=== PATIENT | female | born 1995 | race Caucasian/White ===

== ENCOUNTER 2020-05-10 15:13 | Emergency (ER) | payer OTHER ==
[2020-05-10 17:02] LABS: Urine Blood NEGATIVE (NEG); Urine Glucose NEGATIVE (NEG); Urine Protein NEGATIVE (NEG); Urine Specific Gravity 1.025 (1.005-1.030)
--- NOTE | 2020-05-10 17:38 | RAD REPORT ---
EXAM DESCRIPTION: US - Transvaginal Study Probe - 05/10/2020 5:07 pm CLINICAL HISTORY: Pelvic pain COMPARISON: none FINDINGS: The uterus measures 10 x 4 x 5cm. A fibroid is not seen. The endometrial stripe measures 1 centimeter The right ovary is borderline enlarged. It contains many follicles. It also contains a 2.6 centimeter cyst. Left ovary is borderline enlarged. It also contains many follicles. It contains a 2.9 centimeters cys t. Each ovary contains blood flow The right and left at adnexa unremarkable No significant free fluid is seen. IMPRESSION: Bilateral ovarian cysts Prominent follicles within the ovaries may indicate polycystic ovarian syndrome
--- NOTE | 2020-05-10 17:46 | ER ---
Nurse's Notes [facility] Name: Tigist Valdez Age: 24 yrs Sex: Female : 1995 Arrival Date: 05/10/2020 Time: 15:17 Bed 23 Private MD: Diagnosis: Other ovarian cysts Presentation: 05/10 15:32 Chief complaint: Patient states: bilateral "ovary" pain for 3 months with R>L. sv Yesterday started feeling lightheaded. Coronavirus screen: Client denies travel out of the [place] in the last 14 days. At this time, the client does not indicate any symptoms associated with coronavirus-19. Ebola Screen: No symptoms or risks identified at this time. Risk Assessment: Do you want to hurt yourself or someone else? Patient reports no desire to harm self or others. Onset of symptoms is unknown. 15:32 Method Of Arrival: Ambulatory sv 15:32 Acuity: LUCAS 3 sv 15:33 Initial Sepsis Screen: Does the patient meet any 2 criteria? No. Patient's initial sv sepsis screen is negative. Does the patient have a suspected source of infection? No. Patient's initial sepsis screen is negative. 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 - Social history:: Smoking status: Patient denies any tobacco usage or history of. Screenin:29 Abuse screen: Denies threats or abuse. Denies injuries from another. Nutritional iw screening: No deficits noted. Tuberculosis screening: No symptoms or risk factors identified. Fall Risk None identified. Assessment: 16:29 General: Appears in no apparent distress. comfortable, Behavior is calm, cooperative. iw Pain: Complains of pain in right lower quadrant and left lower quadrant. Neuro: Level of Consciousness is awake, alert, obeys commands, Oriented to person, place, time, situation. Cardiovascular: Patient's skin is warm and dry. Respiratory: Respiratory effort is even, unlabored, Respiratory pattern is regular, symmetrical. GI: Abdomen is non-distended, Reports lower abdominal pain. : Reports pain in bilateral lower quadrant(s) with urination. Derm: Skin is intact, is healthy with good turgor. Musculoskeletal: Range of motion: intact in all extremities. Vital Signs: 15:33 BP 109 / 69; Pulse 76; Resp 16; Temp 98.8; Pulse Ox 99% ; Weight 62.6 kg; Height 5 ft. sv 2 in. (157.48 cm); 15:33 Body Mass Index 25.24 (62.60 kg, 157.48 cm) sv ED Course: 15:17 Patient arrived in ED. as 15:32 Arm band placed on. sv 15:33 Triage completed. sv 16:05 Halina Salazar FNP-C is [facility]. kb 16:05 Alex Richardson MD is Attending Physician. kb 16:13 Thelma Bravo, RN is Primary Nurse. iw 16:28 Patient has correct armband on for positive identification. iw 17:07 US Transvaginal Study (Probe) In Process Unspecified. EDMS 17:56 No provider procedures requiring assistance completed. Patient did not have IV access iw during this emergency room visit. Administered Medications: No medications were administered Outcome: 17:45 Discharge ordered by MD. kb 17:56 Discharged to home ambulatory. iw 17:56 Condition: good 17:56 Discharge instructions given to patient, Instructed on discharge instructions, follow up and referral plans. Demonstrated understanding of instructions, follow-up care, medications, Prescriptions given X 1. 17:57 Patient left the ED. iw Signatures: Dispatcher [employer] EDKY Halina Salazar FNP-C FNP-Ckb Verde, Stephanie, RN RN Lashonda Max as Thelma Bravo, CANDI CHRISTOPHER iw
--- NOTE | 2020-05-10 17:46 | EDPHYS ---
Physician Documentation [facility] Name: Tigsit Valdez Age: 24 yrs Sex: Female : 1995 Arrival Date: 05/10/2020 Time: 15:17 Bed 23 Private MD: ED Physician Alex Richardson HPI: 05/10 18:03 This 24 yrs old Female presents to ER via Ambulatory with complaints of kb Pelvic Pain, Dizziness. 18:03 The patient presents with pelvic pain, that is located in/on the suprapubic area, right kb inguinal area and left inguinal area. Onset: The symptoms/episode began/occurred 3 month(s) ago. Modifying factors: The symptoms are alleviated by nothing, the symptoms are aggravated by nothing. Associated signs and symptoms: The patient has no apparent associated signs or symptoms. Severity of symptoms: At their worst the symptoms were moderate, in the emergency department the symptoms are unchanged. The patient has not experienced similar symptoms in the past. The patient has not recently seen a physician. Pt reports intermittent pelvic/"ovarian" pain for 3 months. States sometimes the pain causes lightheadedness. 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 - Social history:: Smoking status: Patient denies any tobacco usage or history of. ROS: 18:00 Constitutional: Negative for fever, chills, and weight loss, Cardiovascular: Negative kb for chest pain, palpitations, and edema, Respiratory: Negative for shortness of breath, cough, wheezing, and pleuritic chest pain, Abdomen/GI: Negative for abdominal pain, nausea, vomiting, diarrhea, and constipation, Back: Negative for injury and pain, MS/Extremity: Negative for injury and deformity, Skin: Negative for injury, rash, and discoloration, Neuro: Negative for headache, weakness, numbness, tingling, and seizure. 18:00 : Positive for pelvic pain. Exam: 18:03 Constitutional: This is a well developed, well nourished patient who is awake, alert, kb and in no acute distress. Head/Face: Normocephalic, atraumatic. Chest/axilla: Normal chest wall appearance and motion. Nontender with no deformity. No lesions are appreciated. Cardiovascular: Regular rate and rhythm with a normal S1 and S2. No gallops, murmurs, or rubs. Normal PMI, no JVD. No pulse deficits. Respiratory: Lungs have equal breath sounds bilaterally, clear to auscultation and percussion. No rales, rhonchi or wheezes noted. No increased work of breathing, no retractions or nasal flaring. Abdomen/GI: Soft, non-tender, with normal bowel sounds. No distension or tympany. No guarding or rebound. No evidence of tenderness throughout. Skin: Warm, dry with normal turgor. Normal color with no rashes, no lesions, and no evidence of cellulitis. MS/ Extremity: Pulses equal, no cyanosis. Neurovascular intact. Full, normal range of motion. Neuro: Awake and alert, GCS 15, oriented to person, place, time, and situation. Cranial nerves II-XII grossly intact. Motor strength 5/5 in all extremities. Sensory grossly intact. Cerebellar exam normal. Normal gait. Vital Signs: 15:33 BP 109 / 69; Pulse 76; Resp 16; Temp 98.8; Pulse Ox 99% ; Weight 62.6 kg; Height 5 ft. sv 2 in. (157.48 cm); 15:33 Body Mass Index 25.24 (62.60 kg, 157.48 cm) sv MDM: 16:14 Patient medically screened. kb 17:59 Data reviewed: vital signs, nurses notes. Data interpreted: Pulse oximetry: on room air kb is 99 %. Interpretation: normal. Counseling: I had a detailed discussion with the patient and/or guardian regarding: the historical points, exam findings, and any diagnostic results supporting the discharge/admit diagnosis, lab results, radiology results, the need for outpatient follow up, an OB/Gyne specialist, to return to the emergency department if symptoms worsen or persist or if there are any questions or concerns that arise at home. 05/10 16:40 Order name: Urine Dipstick--Ancillary (enter results); Complete Time: 17:06 bd 05/10 16:40 Order name: Urine --Ancillary (enter results); Complete Time: 17: bd 05/10 15:51 Order name: Urine Dipstick-Ancillary (obtain specimen); Complete Time: 16:30 kb 05/10 16:38 Order name: US Transvaginal Study (Probe); Complete Time: 17:43 sv Administered Medications: No medications were administered Disposition: 05/11 06:41 Co-signature as Attending Physician, Alex Richardson MD I agree with the assessment and kdr plan of care. Disposition: 05/10/20 17:45 Discharged to Home. Impression: Other ovarian cysts. - Condition is Stable. - Discharge Instructions: Ovarian Cyst, [id number]. - Prescriptions for Ibuprofen 600 mg Oral Tablet - take 1 tablet by ORAL route every 6 hours As needed take with food; 30 tablet. - Medication Reconciliation Form, Thank You Letter, Antibiotic Education, Prescription Opioid Use form. - Follow up: Emergency Department; When: As needed; Reason: Worsening of condition. Follow up: Private Physician; When: 2 - 3 days; Reason: Recheck today's complaints, Continuance of care, Re-evaluation by your physician. Signatures: Dispatcher [employer] EDVA Halina Salazar, JACQUIE-Stacy PERSONNEL AND PAYROLL TECHNICIAN-Yisel Santoyo, RN RN sv Alex Richardson MD MD [facility] Thelma Bravo RN RN iw Corrections: (The following items were deleted from the chart) 05/10 17:57 17:45 05/10/2020 17:45 Discharged to Home. Impression: Other ovarian cysts. Condition iw is Stable. Forms are Medication Reconciliation Form, Thank You Letter, Antibiotic Education, Prescription Opioid Use. Follow up: Emergency Department; When: As needed; Reason: Worsening of condition. Follow up: Private Physician; When: 2 - 3 days; Reason: Recheck today's complaints, Continuance of care, Re-evaluation by your physician. kb
[2020-05-10 18:02] VITALS: BP 109/69; TEMP 98.8; O2SAT 99
== END 2020-05-10 17:57 | disposition home or self-care (01) ==
LOC: ER 15:13
DX: N83.291 Other ovarian cyst, right side (principal); N83.292 Other ovarian cyst, left side
CPT/HCPCS: 76830; 81003; 81025; 99283

== ENCOUNTER 2020-06-19 10:45 | Emergency (ER) | payer OTHER ==
--- OUTSIDE RECORDS SUMMARY | 2020-06-19 10:48 | XMS REPORT | Continuity of Care Document ---
:1995 Author Organization [facility] t Address [address] [place] [address] Care Team Providers Name Role Phone Unavailable Unavailable Unavailable Payers Payer Name Policy Type Policy Number Effective Date Expiration Date S ource Problems This patient has no known problems. Allergies, Adverse Reactions, Alerts This patient has no known allergies or adverse reactions. Medications This patient has no known medications. Procedures This patient has no known procedures. Results This patient has no known results.
[2020-06-19 12:30] LABS: SARS-COV-2 RT PCR NEGATIVE (NEGATIVE)
--- NOTE | 2020-06-19 13:18 | ER ---
Nurse's Notes [facility] Name: Tigist Valdez Age: 25 yrs Sex: Female : 1995 Arrival Date: 06/19/2020 Time: 10:50 Bed 15 Private MD: Diagnosis: Viral infection, unspecified;Acute upper respiratory infection, unspecified Presentation: 06/19 10:55 Chief complaint: Patient states: Cough, sore throat, loss of taste or smell since ll1 Friday. Wants covid test. Coronavirus screen: Client denies travel out of the [place] in the last 14 days. congestion, cough unrelated to allergies, difficulty breathing, fatigue, fever, headache, nausea, runny nose, shaking with chills, shortness of breath, sore throat, loss of taste or smell, vomiting. Client presents with at least one sign or symptom that may indicate coronavirus-19. Standard/surgical mask placed on the client. Ebola Screen: Patient denies travel to an Ebola-affected area in the 21 days before illness onset. Initial Sepsis Screen: Does the patient meet any 2 criteria? No. Patient's initial sepsis screen is negative. Does the patient have a suspected source of infection? Yes: Productive cough/pneumonia. Risk Assessment: Do you want to hurt yourself or someone else? Patient reports no desire to harm self or others. Onset of symptoms was June 17, 2020. 10:55 Method Of Arrival: Ambulatory ll1 10:58 Acuity: LUCAS 4 ll1 Historical: - Allergies: 10:55 No Known Allergies; ll1 - PMHx: 10:55 None; ll1 - PSHx: 10:55 None; ll1 - Immunization history:: Flu vaccine is not up to date. - Social history:: Smoking status: Patient denies any tobacco usage or history of. Screenin:00 Abuse screen: Denies threats or abuse. Denies injuries from another. Nutritional jl7 screening: No deficits noted. Tuberculosis screening: No symptoms or risk factors identified. Fall Risk None identified. Assessment: 12:00 General: Appears in no apparent distress. uncomfortable, Behavior is calm, cooperative, jl7 appropriate for age. Pain: Complains of pain in sore throat Pain currently is 7 out of 10 on a pain scale. Neuro: Level of Consciousness is awake, alert, obeys commands, Oriented to person, place, time, situation. Cardiovascular: Patient's skin is warm and dry. Respiratory: Reports cough that is Airway is patent Respiratory effort is even, unlabored, Respiratory pattern is regular, symmetrical. EENT: Throat is clear. Derm: Skin is pink, warm \T\ dry. Vital Signs: 10:55 BP 123 / 79; Pulse 82; Resp 16; Temp 98.9; Pulse Ox 100% ; Weight 63.5 kg; Height 5 ft. ll1 2 in. (157.48 cm); Pain 7/10; 10:55 Body Mass Index 25.60 (63.50 kg, 157.48 cm) ll1 ED Course: 10:50 Patient arrived in ED. mr 10:55 Arm band placed on. ll1 10:58 Triage completed. ll1 11:49 Norris Grider PA is PHCP. jr8 11:49 Mckay Moore MD is Attending Physician. jr8 12:00 Patient has correct armband on for positive identification. Bed in low position. Call jl7 light in reach. Side rails up X 1. 12:00 COVID swab sent to lab. Flu and/or RSV swab sent to lab. Strep swab sent to lab. 7 12:11 Sarah Gore RN is Primary Nurse. [facility] 13:47 No provider procedures requiring assistance completed. Patient did not have IV access ss during this emergency room visit. Administered Medications: No medications were administered Outcome: 13:18 Discharge ordered by . [facility] 13:47 Discharged to home ambulatory. 13:47 Condition: good 13:47 Discharge instructions given to patient, Instructed on discharge instructions, follow up and referral plans. Demonstrated understanding of instructions, follow-up care, medications, Prescriptions given X 1. 13:48 Patient left the ED. ss Signatures: Lisandra AlvaradoJane cates RN RN ss Roszak, Josh, PA PA jr8 Sarah Gore RN RN jl7 Lewis, Lynsay, RN RN ll1 Corrections: (The following items were deleted from the chart) 10:58 10:55 BP 123 / 79; Pulse 8bpm; Resp 16bpm; Pulse Ox 100%; Temp 98.9F; 63.5 kg; Height 5 ll1 ft. 2 in.; BMI: 25.6; Pain 7/10; ll1 10:58 10:55 Acuity: LUCAS 3 ll1 1
--- NOTE | 2020-06-19 13:18 | EDPHYS ---
Physician Documentation [facility] Name: Tigist Valdez Age: 25 yrs Sex: Female : 1995 Arrival Date: 06/19/2020 Time: 10:50 Bed 15 Private MD: ED Physician Mckay Moore HPI: 06/19 12:41 This 25 yrs old Female presents to ER via Ambulatory with complaints of jr8 Fever, Lack of taste and smell. 12:41 The patient reports fever, not measured (subjective). Onset: The symptoms/episode jr8 began/occurred gradually, 2 day(s) ago. Modifying factors: there are no obvious modifying factors. Associated signs and symptoms: Pertinent positives: cough, runny nose, sinus congestion, sore throat. Severity of symptoms: At their worst the symptoms were mild in the emergency department the symptoms are unchanged. The patient has not experienced similar symptoms in the past. The patient has not recently seen a physician. Historical: - Allergies: 10:55 No Known Allergies; ll1 - PMHx: 10:55 None; ll1 - PSHx: 10:55 None; ll1 - Immunization history:: Flu vaccine is not up to date. - Social history:: Smoking status: Patient denies any tobacco usage or history of. ROS: 12:41 Eyes: Negative for injury, pain, redness, and discharge, Neck: Negative for injury, jr8 pain, and swelling, Cardiovascular: Negative for chest pain, palpitations, and edema, Abdomen/GI: Negative for abdominal pain, nausea, vomiting, diarrhea, and constipation, Back: Negative for injury and pain, MS/Extremity: Negative for injury and deformity, Skin: Negative for injury, rash, and discoloration. 12:41 Constitutional: Positive for body aches, fever. 12:41 ENT: Positive for rhinorrhea, sinus congestion, sore throat. 12:41 Respiratory: Positive for cough, Negative for dyspnea on exertion, shortness of breath, sputum production, wheezing. 12:41 Neuro: Positive for headache. Exam: 12:41 Eyes: Pupils equal round and reactive to light, extra-ocular motions intact. Lids and jr8 lashes normal. Conjunctiva and sclera are non-icteric and not injected. Cornea within normal limits. Periorbital areas with no swelling, redness, or edema. ENT: Nares patent. No nasal discharge, no septal abnormalities noted. Tympanic membranes are normal and external auditory canals are clear. Oropharynx with no redness, swelling, or masses, exudates, or evidence of obstruction, uvula midline. Mucous membranes moist. Neck: Trachea midline, no thyromegaly or masses palpated, and no cervical lymphadenopathy. Supple, full range of motion without nuchal rigidity, or vertebral point tenderness. No Meningismus. Cardiovascular: Regular rate and rhythm with a normal S1 and S2. No gallops, murmurs, or rubs. Normal PMI, no JVD. No pulse deficits. Respiratory: Lungs have equal breath sounds bilaterally, clear to auscultation and percussion. No rales, rhonchi or wheezes noted. No increased work of breathing, no retractions or nasal flaring. Abdomen/GI: Soft, non-tender, with normal bowel sounds. No distension or tympany. No guarding or rebound. No evidence of tenderness throughout. Back: No spinal tenderness. No costovertebral tenderness. Full range of motion. Skin: Warm, dry with normal turgor. Normal color with no rashes, no lesions, and no evidence of cellulitis. MS/ Extremity: Pulses equal, no cyanosis. Neurovascular intact. Full, normal range of motion. Neuro: Awake and alert, GCS 15, oriented to person, place, time, and situation. Cranial nerves II-XII grossly intact. Motor strength 5/5 in all extremities. Sensory grossly intact. Vital Signs: 10:55 BP 123 / 79; Pulse 82; Resp 16; Temp 98.9; Pulse Ox 100% ; Weight 63.5 kg; Height 5 ft. ll1 2 in. (157.48 cm); Pain 7/10; 10:55 Body Mass Index 25.60 (63.50 kg, 157.48 cm) ll1 MDM: 11:50 Patient medically screened. [facility] 13:17 Data reviewed: vital signs, nurses notes, lab test result(s), and as a result, I will jr8 discharge patient. Data interpreted: Pulse oximetry: on room air is 100 %. Interpretation: normal. Counseling: I had a detailed discussion with the patient and/or guardian regarding: the historical points, exam findings, and any diagnostic results supporting the discharge/admit diagnosis, lab results, the need for outpatient follow up, a family practitioner, to return to the emergency department if symptoms worsen or persist or if there are any questions or concerns that arise at home. 06/19 11:27 Order name: Strep; Complete Time: 13:17 rn 06/19 12:31 Order name: COVID-19/FLU A+B; Complete Time: 12:41 EDMS 06/19 13:08 Order name: Throat Culture EDNJ Administered Medications: No medications were administered Disposition: 14:39 Co-signature as Attending Physician, Mckay Moore MD. rn Disposition: 06/19/20 13:18 Discharged to Home. Impression: Viral infection, unspecified, Acute upper respiratory infection, unspecified. - Condition is Stable. - Discharge Instructions: Upper Respiratory Infection, Adult, Viral Respiratory Infection, COVID-19. - Prescriptions for Medrol (G[place]ito) 4 mg Oral Tablets, Dose Pack - take 1 tablet by ORAL route as directed - follow package instructions; 1 packet. - Medication Reconciliation Form, Thank You Letter, Antibiotic Education, Prescription Opioid Use form. - Follow up: Private Physician; When: 2 - 3 days; Reason: Recheck today's complaints, Continuance of care, Re-evaluation by your physician. - Problem is new. - Symptoms have improved. Signatures: Dispatcher [employer] EDNJ Mckay Moore MD MD rn Smirch, Shelby, RN RN ss Norris Grider PA PA jr8 Jacque Goodwin RN RN ll1 Corrections: (The following items were deleted from the chart) 11:47 11:28 CORONAVIRUS+MR.LAB.BRZ ordered. [facility] 11:48 11:28 Influenza Screen (A \T\ B)+BA.LAB.BRZ ordered. [facility] 13:18 13:18 06/19/2020 13:18 Discharged to Home. Impression: Viral infection, unspecified. jr8 Condition is Stable. Forms are Medication Reconciliation Form, Thank You Letter, Antibiotic Education, Prescription Opioid Use. Follow up: Private Physician; When: 2 - 3 days; Reason: Recheck today's complaints, Continuance of care, Re-evaluation by your physician. Problem is new. Symptoms have improved. jr 13:48 13:18 06/19/2020 13:18 Discharged to Home. Impression: Viral infection, unspecified; ss Acute upper respiratory infection, unspecified. Condition is Stable. Forms are Medication Reconciliation Form, Thank You Letter, Antibiotic Education, Prescription Opioid Use. Follow up: Private Physician; When: 2 - 3 days; Reason: Recheck today's complaints, Continuance of care, Re-evaluation by your physician. Problem is new. Symptoms have improved. jr8
[2020-06-19 13:52] VITALS: BP 123/79; TEMP 98.9; O2SAT 100
== END 2020-06-19 13:48 | disposition home or self-care (01) ==
LOC: ER 10:45
DX: J06.9 Acute upper respiratory infection, unspecified (principal); B34.9 Viral infection, unspecified; Z20.822 Contact with and (suspected) exposure to COVID-19
CPT/HCPCS: 87070; 87081; 0240U; 99283

== ENCOUNTER → 2023-04-07 | Emergency (ER) | payer OTHER ==
[~2023-04-07] MED LIST: CEFTRIAXONE 1000 MG/VIAL ONE; CLINDAMYCIN 900MG/D5W 900 MG/50 ML IVPB IV ONE; CODEINE 30MG/APAP 300MG TAB ONE; KETOROLAC 30 MG/ML INJ ONE; LIDOCAINE 1% MPF 2 ML AMPULE ONE; dexAMETHasone 10 MG/ML VIAL ONE
--- OUTSIDE RECORDS SUMMARY | 2023-04-07 21:41 | XMS REPORT | Continuity of Care Document ---
Author Name Unknown Address [address] [place] [address] [facility] Address 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
[2023-04-07 22:10] LABS: Specific Gravity 1.022 (1.005-1.030)
--- NOTE | 2023-04-07 22:41 | ER ---
Nurse's Notes [facility] Name: Tigist Valdez Age: 27 yrs Sex: Female : 1995 Arrival Date: 04/07/2023 Time: 21:38 Bed DX1 Private MD: Diagnosis: Acute bacterial pharyngitis, right cervical anterior lymphadenopathy Presentation: 04/07 21:43 Chief complaint: Patient states: R THROAT PAIN x2 DAYS. Coronavirus screen: At this bp time, the client does not indicate any symptoms associated with coronavirus-19. Ebola Screen: No symptoms or risks identified at this time. Initial Sepsis Screen: Does the patient meet any 2 criteria? No. Patient's initial sepsis screen is negative. Does the patient have a suspected source of infection? No. Patient's initial sepsis screen is negative. Risk Assessment: Do you want to hurt yourself or someone else?. Onset of symptoms is unknown. 21:43 Method Of Arrival: Ambulatory bp 21:43 Acuity: LUCAS 4 bp Historical: - Allergies: 21:46 No Known Allergies; bp - Home Meds: 21:46 None [Active]; bp - PMHx: 21:46 None; bp - Immunization history:: Adult Immunizations up to date. - Social history:: Smoking status: Patient denies any tobacco usage or history of. - Family history:: not pertinent. Screenin:48 [facility] ED Fall Risk Assessment (Adult) History of falling in the last 3 months, vc1 including since admission No falls in past 3 months (0 pts) Confusion or Disorientation No (0 pts) Intoxicated or Sedated No (0 pts) Impaired Gait No (0 pts) Mobility Assist Device Used No (0 pt) Altered Elimination No (0 pt) Score/Fall Risk Level 0 - 2 = Low Risk Oriented to surroundings, Maintained a safe environment, Educated pt \T\ family on fall prevention, incl call for assistance when getting out of bed. Abuse screen: Denies threats or abuse. Nutritional screening: No deficits noted. Tuberculosis screening: No symptoms or risk factors identified. Assessment: 22:50 Reassessment: Patient and/or family updated on plan of care and expected duration. Pain vc1 level reassessed. Patient is alert, oriented x 3, equal unlabored respirations, skin warm/dry/pink. Patient states feeling better. Patient states symptoms have improved. Pain: Denies pain. Neuro: No deficits noted. Respiratory: Airway is patent Respiratory effort is even, unlabored, Respiratory pattern is regular, symmetrical. Vital Signs: 21:43 BP 140 / 78; Pulse 75; Resp 16; Temp 98; Pulse Ox 98% ; bp 22:47 BP 134 / 74; Pulse 72; Resp 16; Pulse Ox 98% ; Pain 0/10; vc1 22:47 Pain Scale: Adult vc1 ED Course: 21:42 Patient arrived in ED. mr 21:42 Aram Viveros MD is Attending Physician. sp4 21:45 Triage completed. bp 21:46 Arm band placed on. bp 22:48 No provider procedures requiring assistance completed. Patient did not have IV access vc1 during this emergency room visit. Administered Medications: 22:04 Drug: Ketorolac IM 60 mg IM once Route: IM; Site: right ventrogluteal; vc1 22:47 Follow up: Response: No adverse reaction; Marked relief of symptoms vc1 22:04 Drug: Rocephin (cefTRIAXone) IM 1 grams IM once Route: IM; Site: left ventrogluteal; vc1 22:47 Follow up: Response: No adverse reaction; Marked relief of symptoms vc1 22:04 Drug: Acetaminophen-Codeine PO (300 mg-30 mg) 2 tabs PO once; RASS on ADMIN: Combtv4, vc1 Very Agttd3, Agttd2, Rstlss1, AlertClm0, Drwsy-1, Lt Sdtn-2, Mod Sdtn-3, Dp Sdtn-4, UnArsble-5 Route: PO; 22:47 Follow up: Response: No adverse reaction; Marked relief of symptoms; Pain is decreased vc1 Medication: 22:50 VIS not applicable for this client. vc1 Outcome: 22:40 Discharge ordered by MD. sp4 22:50 Discharged to home ambulatory, vc1 22:50 Condition: good 22:50 Discharge instructions given to patient, Instructed on discharge instructions, follow up and referral plans. medication usage, Demonstrated understanding of instructions, follow-up care, medications, Prescriptions given X 3, 22:51 Patient left the ED. vc1 Signatures: Lisandra Alvarado, Reg Reg mr Agustin Pike RN RN bp Sheri Martel RN RN vc1 Jackeline Aram, MD sp4
--- NOTE | 2023-04-07 22:41 | EDPHYS ---
Physician Documentation [facility] Name: Tigist Valdez Age: 27 yrs Sex: Female : 1995 Arrival Date: 04/07/2023 Time: 21:38 Bed DX1 Private MD: ED Physician Aram Viveros HPI: 04/07 21:42 This 27 yrs old Female presents to ER via Unassigned with complaints of sp4 Throat swelling. 21:48 27-year-old female presents with 3 days of right-sided throat swelling pain with sp4 swallowing as well and sore throat. Patient denied any difficulty swallowing and denied any difficulty breathing. . Historical: - Allergies: 21:46 No Known Allergies; bp - Home Meds: 21:46 None [Active]; bp - PMHx: 21:46 None; bp - Immunization history:: Adult Immunizations up to date. - Social history:: Smoking status: Patient denies any tobacco usage or history of. - Family history:: not pertinent. ROS: 21:48 Constitutional: Negative for fever, chills, and weight loss, positive right neck sp4 swelling, positive photophobia, positive pain on swallowing 21:48 All other systems are negative, Exam: 21:48 Constitutional: This is a well developed, well nourished patient who is awake, alert, sp4 and in no acute distress. Head/Face: Normocephalic, atraumatic. Eyes: Pupils equal round and reactive to light, extra-ocular motions intact. Lids and lashes normal. Conjunctiva and sclera are not injected. Cornea within normal limits. Periorbital areas with no swelling, redness, or edema. ENT: Nares patent. No nasal discharge, no septal abnormalities noted. Tympanic membranes are normal and external auditory canals are clear. Oropharynx with bilateral pharyngeal redness and irritation, no sign of peritonsillar abscess no uvular deviation. Neck: Trachea midline, no thyromegaly or masses palpated, Supple, full range of motion without nuchal rigidity, or vertebral point tenderness. Positive right-sided cervical lymphadenopathy that is anterior and right submandibular Chest/axilla: Normal chest wall appearance and motion. Nontender with no deformity. No lesions are appreciated. Cardiovascular: Regular rate and rhythm with a normal S1 and S2. No gallops, murmurs, or rubs. Normal PMI, no JVD. No pulse deficits. Respiratory: Lungs have equal breath sounds bilaterally, clear to auscultation and percussion. No rales, rhonchi or wheezes noted. No increased work of breathing, no retractions or nasal flaring. Abdomen/GI: Soft, non-tender, with normal bowel sounds. No distension or tympany. No guarding or rebound. No evidence of tenderness throughout. Back: No spinal tenderness. No costovertebral tenderness. There is sacral decubitus ulcer that is covered by the wound VAC. Skin: Warm, dry with normal turgor. Normal color with no rashes, no lesions, and no evidence of cellulitis. MS/ Extremity: Pulses equal, no cyanosis. Neurovascular intact. Full, normal range of motion. Neuro: Awake and alert, GCS 15, oriented to person, place, time, and situation. Cranial nerves II-XII grossly intact. Motor strength 5/5 in all extremities. Sensory grossly intact. Psych: Awake, alert, with orientation to person, place and time. Behavior, mood, and affect are within normal limits Vital Signs: 21:43 BP 140 / 78; Pulse 75; Resp 16; Temp 98; Pulse Ox 98% ; bp 22:47 BP 134 / 74; Pulse 72; Resp 16; Pulse Ox 98% ; Pain 0/10; vc1 22:47 Pain Scale: Adult vc1 MDM: 21:48 Differential Diagnosis altered mental status, sepsis, flu. Data reviewed: vital signs. sp4 Data reviewed: nurses notes, lab test result(s), UPT: negative. 21:55 Patient medically screened. sp4 22:39 ED course: test is negative. ED course: Is a test is negative sp4 patient is stable for discharge home with cefdinir ibuprofen and some tramadol.. 22:41 ED course: Patient advised to return to emergency room in case lymphadenopathy becomes sp4 greater in size or she develops hoarseness or difficulty breathing.. Additional return to ER precautions were discussed with patient in detail.. 04/07 21:48 Order name: Test, Urine; Complete Time: 22:37 sp4 Administered Medications: 22:04 Drug: Ketorolac IM 60 mg IM once Route: IM; Site: right ventrogluteal; vc1 22:47 Follow up: Response: No adverse reaction; Marked relief of symptoms vc1 22:04 Drug: Rocephin (cefTRIAXone) IM 1 grams IM once Route: IM; Site: left ventrogluteal; vc1 22:47 Follow up: Response: No adverse reaction; Marked relief of symptoms vc1 22:04 Drug: Acetaminophen-Codeine PO (300 mg-30 mg) 2 tabs PO once; RASS on ADMIN: Combtv4, vc1 Very Agttd3, Agttd2, Rstlss1, AlertClm0, Drwsy-1, Lt Sdtn-2, Mod Sdtn-3, Dp Sdtn-4, UnArsble-5 Route: PO; 22:47 Follow up: Response: No adverse reaction; Marked relief of symptoms; Pain is decreased vc1 Disposition Summary: 04/07/23 22:40 Discharge Ordered Notes: Location: Home sp4 Problem: new sp4 Symptoms: have improved sp4 Condition: Stable sp4 Diagnosis - Acute bacterial pharyngitis, right cervical anterior lymphadenopathy sp4 Followup: sp4 - With: Private Physician - When: 7 - 10 days - Reason: Recheck today's complaints Discharge Instructions: - Discharge Summary Sheet sp4 - Lymphadenopathy sp4 Forms: - Patient Portal Instructions sp4 Prescriptions: - cefdinir 300 mg Oral capsule - take 1 capsule ORAL route 2 times per day for 10 days; 20 capsule; Refills: 0, sp4 Product Selection Permitted - Ibuprofen 800 mg Oral Tablet - take 1 tablet ORAL route every 8 hours As needed take with food; 30 tablet; sp4 Refills: 0, Product Selection Permitted - Tramadol 50 mg Oral Tablet - take 1 tablet ORAL route every 8 hours as needed; 12 tablet; Refills: 0, sp4 Product Selection Permitted Signatures: Dispatcher [employer] Agustin Ceron RN RN Sheri Peoples RN RN vc1 Aram Viveros MD MD sp4
[2023-04-08 02:38] VITALS: BP 134/74; TEMP 98; O2SAT 98
== END ==
LOC: ER 21:38
DX: J02.8 Acute pharyngitis due to other specified organisms (principal); R59.0 Localized enlarged lymph nodes
CPT/HCPCS: 81025; 96372; 99284; J0696

== ENCOUNTER → 2023-04-10 | Emergency (ER) | payer OTHER ==
[~2023-04-10] MED LIST changes: -CEFTRIAXONE 1000 MG/VIAL ONE; -CLINDAMYCIN 900MG/D5W 900 MG/50 ML IVPB IV ONE; -CODEINE 30MG/APAP 300MG TAB ONE; +FAMOTIDINE 20 MG/2 ML VIAL IV ONE; -KETOROLAC 30 MG/ML INJ ONE; -LIDOCAINE 1% MPF 2 ML AMPULE ONE; +METOCLOPRAMIDE 10 MG/2mL INJ ONE; +NA CHLORIDE 0.9% 1,000 ML ONE; +ONDANSETRON 4 MG/2 ML VIAL ONE; -dexAMETHasone 10 MG/ML VIAL ONE
--- OUTSIDE RECORDS SUMMARY | 2023-04-10 14:44 | XMS REPORT | Continuity of Care Document ---
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 2013-01-07 00:00:00 Completed [facility] [place] Hep B, Adol or Pedi Dosage 2010-11-13 00:00:00 Completed [facility] [place] TDAP 2010-11-13 00:00:00 Completed [facility] [place] Meningococcal Polysaccharide (groups A, C, Y and W-135) conjugate vaccine (MCV4P) 2010-11-13 00:00:00 Completed [facility] [place] Hep B, Adol or Pedi Dosage 2010-11-13 00:00:00 Completed [facility] [place] TDAP 2010-11-13 00:00:00 Completed [facility] [place] Meningococcal Polysaccharide (groups A, C, Y and W-135) conjugate vaccine (MCV4P) 2010-11-13 00:00:00 Completed [facility] [place] Hep B, Adol or Pedi Dosage 2010-11-13 00:00:00 Completed [facility] [place] TDAP 2010-11-13 00:00:00 Completed [facility] [place] Meningococcal Polysaccharide (groups A, C, Y and W-135) conjugate vaccine (MCV4P) 2010-11-13 00:00:00 Completed [facility] [place] Hep B, Adol or Pedi Dosage 2010-11-13 00:00:00 Completed [facility] [place] TDAP 2010-11-13 00:00:00 Completed [facility] [place] Meningococcal Polysaccharide (groups A, C, Y and W-135) conjugate vaccine (MCV4P) 2010-11-13 00:00:00 Completed [facility] [place] Hep B, Adol or Pedi Dosage 2010-11-13 00:00:00 Completed [facility] [place] TDAP 2010-11-13 00:00:00 Completed [facility] [place] Meningococcal Polysaccharide (groups A, C, Y and W-135) conjugate vaccine (MCV4P) 2010-11-13 00:00:00 Completed [facility] [place] Hep B, Adol or Pedi Dosage 2010-11-13 00:00:00 Completed [facility] [place] TDAP 2010-11-13 00:00:00 Completed [facility] [place] Meningococcal Polysaccharide (groups A, C, Y and W-135) conjugate vaccine (MCV4P) 2010-11-13 00:00:00 Completed [facility] [place] Hep B, Adol or Pedi Dosage 2010-11-13 00:00:00 Completed [facility] [place] TDAP 2010-11-13 00:00:00 Completed [facility] [place] Meningococcal Polysaccharide (groups A, C, Y and W-135) conjugate vaccine (MCV4P) 2010-11-13 00:00:00 Completed [facility] [place] Hep B, Adol or Pedi Dosage 2010-11-13 00:00:00 Completed [facility] [place] TDAP 2010-11-13 00:00:00 Completed [facility] [place] Meningococcal Polysaccharide (groups A, C, Y and W-135) conjugate vaccine (MCV4P) 2010-11-13 00:00:00 Completed [facility] [place] Hep B, Adol or Pedi Dosage 2010-11-13 00:00:00 Completed [facility] [place] TDAP 2010-11-13 00:00:00 Completed [facility] [place] Meningococcal Polysaccharide (groups A, C, Y and W-135) conjugate vaccine (MCV4P) 2010-11-13 00:00:00 Completed [facility] [place] Hep B, Adol or Pedi Dosage 2010-11-13 00:00:00 Completed [facility] [place] TDAP 2010-11-13 00:00:00 Completed [facility] [place] Meningococcal Polysaccharide (groups A, C, Y and W-135) conjugate vaccine (MCV4P) 2010-11-13 00:00:00 Completed [facility] [place] Hep B, Adol or Pedi Dosage 2010-11-13 00:00:00 Completed [facility] [place] TDAP 2010-11-13 00:00:00 Completed [facility] [place] Meningococcal Polysaccharide (groups A, C, Y and W-135) conjugate vaccine (MCV4P) 2010-11-13 00:00:00 Completed [facility] [place] Hep B, Adol or Pedi Dosage 2010-11-13 00:00:00 Completed [facility] [place] TDAP 2010-11-13 00:00:00 Completed [facility] [place] Meningococcal Polysaccharide (groups A, C, Y and W-135) conjugate vaccine (MCV4P) 2010-11-13 00:00:00 Completed [facility] [place] Hep B, Adol or Pedi Dosage 2010-11-13 00:00:00 Completed [facility] [place] TDAP 2010-11-13 00:00:00 Completed [facility] [place] Meningococcal Polysaccharide (groups A, C, Y and W-135) conjugate vaccine (MCV4P) 2010-11-13 00:00:00 Completed [facility] [place] Hep B, Adol or Pedi Dosage 2010-11-13 00:00:00 Completed [facility] [place] TDAP 2010-11-13 00:00:00 Completed [facility] [place] Meningococcal Polysaccharide (groups A, C, Y and W-135) conjugate vaccine (MCV4P) 2010-11-13 00:00:00 Completed [facility] [place] Hep B, Adol or Pedi Dosage 2010-11-13 00:00:00 Completed [facility] [place] TDAP 2010-11-13 00:00:00 Completed [facility] [place] Meningococcal Polysaccharide (groups A, C, Y and W-135) conjugate vaccine (MCV4P) 2010-11-13 00:00:00 Completed [facility] [place] Hep B, Adol or Pedi Dosage 2010-11-13 00:00:00 Completed [facility] [place] TDAP 2010-11-13 00:00:00 Completed [facility] [place] Meningococcal Polysaccharide (groups A, C, Y and W-135) conjugate vaccine (MCV4P) 2010-11-13 00:00:00 Completed [facility] [place] Hep B, Adol or Pedi Dosage 2010-11-13 00:00:00 Completed [facility] [place] TDAP 2010-11-13 00:00:00 Completed [facility] [place] Meningococcal Polysaccharide (groups A, C, Y and W-135) conjugate vaccine (MCV4P) 2010-11-13 00:00:00 Completed [facility] [place] Hep B, Adol or Pedi Dosage 2010-11-13 00:00:00 Completed [facility] [place] TDAP 2010-11-13 00:00:00 Completed [facility] [place] Hep B, Adol or Pedi Dosage 2010-11-13 00:00:00 Completed [facility] [place] TDAP 2010-11-13 00:00:00 Completed [facility] [place] Hep B, Adol or Pedi Dosage 2010-11-13 00:00:00 Completed [facility] [place] TDAP 2010-11-13 00:00:00 Completed [facility] [place] Hep B, Adol or Pedi Dosage 2010-11-13 00:00:00 Completed [facility] [place] TDAP 2010-11-13 00:00:00 Completed [facility] [place] Hep B, Adol or Pedi Dosage 2010-11-13 00:00:00 Completed [facility] [place] TDAP 2010-11-13 00:00:00 Completed [facility] [place] Hep B, Adol or Pedi Dosage 2010-11-13 00:00:00 Completed [facility] [place] TDAP 2010-11-13 00:00:00 Completed [facility] [place] Hep B, Adol or Pedi Dosage 2010-11-13 00:00:00 Completed [facility] [place] TDAP 2010-11-13 00:00:00 Completed [facility] [place] Meningococcal Polysaccharide (groups A, C, Y and W-135) conjugate vaccine (MCV4P) 2010-11-13 00:00:00 Completed [facility] [place] Hep B, Adol or Pedi Dosage 2010-11-13 00:00:00 Completed [facility] [place] TDAP 2010-11-13 00:00:00 Completed [facility] [place] Meningococcal Polysaccharide (groups A, C, Y and W-135) conjugate vaccine (MCV4P) 2010-11-13 00:00:00 Completed [facility] [place] Hep B, Adol or Pedi Dosage 2010-11-13 00:00:00 Completed [facility] [place] TDAP 2010-11-13 00:00:00 Completed [facility] [place] Meningococcal Polysaccharide (groups A, C, Y and W-135) conjugate vaccine (MCV4P) 2010-11-13 00:00:00 Completed [facility] [place] Hep B, Adol or Pedi Dosage 2010-11-13 00:00:00 Completed [facility] [place] TDAP 2010-11-13 00:00:00 Completed [facility] [place] Meningococcal Polysaccharide (groups A, C, Y and W-135) conjugate vaccine (MCV4P) 2010-11-13 00:00:00 Completed [facility] [place] Hep B, Adol or Pedi Dosage 2010-11-13 00:00:00 Completed [facility] [place] TDAP 2010-11-13 00:00:00 Completed [facility] [place] Meningococcal Polysaccharide (groups A, C, Y and W-135) conjugate vaccine (MCV4P) 2010-11-13 00:00:00 Completed [facility] [place] Hep B, Adol or Pedi Dosage 2010-11-13 00:00:00 Completed [facility] [place] TDAP 2010-11-13 00:00:00 Completed [facility] [place] Meningococcal Polysaccharide (groups A, C, Y and W-135) conjugate vaccine (MCV4P) 2010-11-13 00:00:00 Completed [facility] [place] Hep B, Adol or Pedi Dosage 2010-11-13 00:00:00 Completed [facility] [place] TDAP 2010-11-13 00:00:00 Completed [facility] [place] Meningococcal Polysaccharide (groups A, C, Y and W-135) conjugate vaccine (MCV4P) 2010-11-13 00:00:00 Completed [facility] [place] MMR 2003-01-12 00:00:00 Completed [facility] [place] MMR 2003-01-12 00:00:00 Completed [facility] MMR 2003-01-12 00:00:00 Completed [facility] [place] MMR 2003-01-12 00:00:00 Completed [facility] MMR 2003-01-12 00:00:00 Completed [facility] MMR 2003-01-12 00:00:00 Completed [facility] MMR 2003-01-12 00:00:00 Completed [facility] [place] MMR 2003-01-12 00:00:00 Completed [facility] [place] MMR 2003-01-12 00:00:00 Completed [facility] [place] MMR 2003-01-12 00:00:00 Completed [facility] [place] MMR 2003-01-12 00:00:00 Completed [facility] [place] MMR 2003-01-12 00:00:00 Completed [facility] [place] MMR 2003-01-12 00:00:00 Completed [facility] [place] MMR 2003-01-12 00:00:00 Completed [facility] [place] MMR 2003-01-12 00:00:00 Completed [facility] [place] MMR 2003-01-12 00:00:00 Completed [facility] [place] MMR 2003-01-12 00:00:00 Completed [facility] [place] MMR 2003-01-12 00:00:00 Completed [facility] [place] MMR 2003-01-12 00:00:00 Completed [facility] [place] MMR 2003-01-12 00:00:00 Completed [facility] [place] MMR 2003-01-12 00:00:00 Completed [facility] [place] MMR 2003-01-12 00:00:00 Completed [facility] [place] MMR 2003-01-12 00:00:00 Completed [facility] [place] MMR 2003-01-12 00:00:00 Completed [facility] [place] MMR 2003-01-12 00:00:00 Completed [facility] [place] MMR 2003-01-12 00:00:00 Completed [facility] MMR 2003-01-12 00:00:00 Completed [facility] [place] MMR 2003-01-12 00:00:00 Completed [facility] [place] MMR 2003-01-12 00:00:00 Completed [facility] [place] MMR 2003-01-12 00:00:00 Completed [facility] [place] DTAP 2002-11-20 00:00:00 Completed [facility] [place] MMR 2002-11-20 00:00:00 Completed [facility] [place] Polio (IPV/OPV) 2002-11-20 00:00:00 Completed [facility] [place] DTaP, Unspecified Formulation 2002-11-20 00:00:00 Completed [facility] [place] IPV 2002-11-20 00:00:00 Completed [facility] [place] DTAP 2002-11-20 00:00:00 Completed [facility] [place] MMR 2002-11-20 00:00:00 Completed [facility] [place] Polio (IPV/OPV) 2002-11-20 00:00:00 Completed [facility] [place] DTaP, Unspecified Formulation 2002-11-20 00:00:00 Completed [facility] [place] IPV 2002-11-20 00:00:00 Completed [facility] [place] DTAP 2002-11-20 00:00:00 Completed [facility] [place] MMR 2002-11-20 00:00:00 Completed [facility] [place] Polio (IPV/OPV) 2002-11-20 00:00:00 Completed [facility] [place] DTaP, Unspecified Formulation 2002-11-20 00:00:00 Completed [facility] [place] IPV 2002-11-20 00:00:00 Completed [facility] [place] DTAP 2002-11-20 00:00:00 Completed [facility] [place] MMR 2002-11-20 00:00:00 Completed [facility] [place] Polio (IPV/OPV) 2002-11-20 00:00:00 Completed [facility] [place] DTaP, Unspecified Formulation 2002-11-20 00:00:00 Completed [facility] [place] IPV 2002-11-20 00:00:00 Completed [facility] [place] DTAP 2002-11-20 00:00:00 Completed [facility] [place] MMR 2002-11-20 00:00:00 Completed [facility] [place] Polio (IPV/OPV) 2002-11-20 00:00:00 Completed [facility] [place] DTaP, Unspecified Formulation 2002-11-20 00:00:00 Completed [facility] [place] IPV 2002-11-20 00:00:00 Completed [facility] [place] DTAP 2002-11-20 00:00:00 Completed [facility] [place] MMR 2002-11-20 00:00:00 Completed [facility] [place] Polio (IPV/OPV) 2002-11-20 00:00:00 Completed [facility] [place] DTaP, Unspecified Formulation 2002-11-20 00:00:00 Completed [facility] [place] IPV 2002-11-20 00:00:00 Completed [facility] [place] DTAP 2002-11-20 00:00:00 Completed [facility] [place] MMR 2002-11-20 00:00:00 Completed [facility] [place] Polio (IPV/OPV) 2002-11-20 00:00:00 Completed [facility] [place] DTaP, Unspecified Formulation 2002-11-20 00:00:00 Completed [facility] [place] IPV 2002-11-20 00:00:00 Completed [facility] [place] DTAP 2002-11-20 00:00:00 Completed [facility] [place] MMR 2002-11-20 00:00:00 Completed [facility] [place] Polio (IPV/OPV) 2002-11-20 00:00:00 Completed [facility] [place] DTaP, Unspecified Formulation 2002-11-20 00:00:00 Completed [facility] [place] IPV 2002-11-20 00:00:00 Completed [facility] [place] DTAP 2002-11-20 00:00:00 Completed [facility] [place] MMR 2002-11-20 00:00:00 Completed [facility] [place] Polio (IPV/OPV) 2002-11-20 00:00:00 Completed [facility] [place] DTaP, Unspecified Formulation 2002-11-20 00:00:00 Completed [facility] [place] IPV 2002-11-20 00:00:00 Completed [facility] [place] DTAP 2002-11-20 00:00:00 Completed [facility] [place] MMR 2002-11-20 00:00:00 Completed [facility] [place] Polio (IPV/OPV) 2002-11-20 00:00:00 Completed [facility] [place] DTaP, Unspecified Formulation 2002-11-20 00:00:00 Completed [facility] [place] IPV 2002-11-20 00:00:00 Completed [facility] [place] DTAP 2002-11-20 00:00:00 Completed [facility] [place] MMR 2002-11-20 00:00:00 Completed [facility] [place] Polio (IPV/OPV) 2002-11-20 00:00:00 Completed [facility] [place] DTaP, Unspecified Formulation 2002-11-20 00:00:00 Completed [facility] [place] IPV 2002-11-20 00:00:00 Completed [facility] [place] DTAP 2002-11-20 00:00:00 Completed [facility] [place] MMR 2002-11-20 00:00:00 Completed [facility] [place] Polio (IPV/OPV) 2002-11-20 00:00:00 Completed [facility] [place] DTaP, Unspecified Formulation 2002-11-20 00:00:00 Completed [facility] [place] IPV 2002-11-20 00:00:00 Completed [facility] [place] DTAP 2002-11-20 00:00:00 Completed [facility] [place] MMR 2002-11-20 00:00:00 Completed [facility] [place] Polio (IPV/OPV) 2002-11-20 00:00:00 Completed [facility] [place] DTaP, Unspecified Formulation 2002-11-20 00:00:00 Completed [facility] [place] IPV 2002-11-20 00:00:00 Completed [facility] [place] DTAP 2002-11-20 00:00:00 Completed [facility] [place] MMR 2002-11-20 00:00:00 Completed [facility] [place] Polio (IPV/OPV) 2002-11-20 00:00:00 Completed [facility] [place] DTaP, Unspecified Formulation 2002-11-20 00:00:00 Completed [facility] [place] IPV 2002-11-20 00:00:00 Completed [facility] [place] DTAP 2002-11-20 00:00:00 Completed [facility] [place] MMR 2002-11-20 00:00:00 Completed [facility] [place] Polio (IPV/OPV) 2002-11-20 00:00:00 Completed [facility] [place] DTaP, Unspecified Formulation 2002-11-20 00:00:00 Completed [facility] [place] IPV 2002-11-20 00:00:00 Completed [facility] [place] DTAP 2002-11-20 00:00:00 Completed [facility] [place] MMR 2002-11-20 00:00:00 Completed [facility] [place] Polio (IPV/OPV) 2002-11-20 00:00:00 Completed [facility] [place] DTaP, Unspecified Formulation 2002-11-20 00:00:00 Completed [facility] [place] IPV 2002-11-20 00:00:00 Completed [facility] [place] DTAP 2002-11-20 00:00:00 Completed [facility] [place] MMR 2002-11-20 00:00:00 Completed [facility] [place] Polio (IPV/OPV) 2002-11-20 00:00:00 Completed [facility] [place] DTaP, Unspecified Formulation 2002-11-20 00:00:00 Completed [facility] [place] IPV 2002-11-20 00:00:00 Completed [facility] [place] DTAP 2002-11-20 00:00:00 Completed [facility] [place] MMR 2002-11-20 00:00:00 Completed [facility] [place] Polio (IPV/OPV) 2002-11-20 00:00:00 Completed [facility] [place] DTAP 2002-11-20 00:00:00 Completed [facility] [place] MMR 2002-11-20 00:00:00 Completed [facility] [place] Polio (IPV/OPV) 2002-11-20 00:00:00 Completed [facility] [place] DTAP 2002-11-20 00:00:00 Completed [facility] [place] MMR 2002-11-20 00:00:00 Completed [facility] [place] Polio (IPV/OPV) 2002-11-20 00:00:00 Completed [facility] [place] DTAP 2002-11-20 00:00:00 Completed [facility] [place] MMR 2002-11-20 00:00:00 Completed [facility] [place] Polio (IPV/OPV) 2002-11-20 00:00:00 Completed [facility] [place] DTAP 2002-11-20 00:00:00 Completed [facility] [place] MMR 2002-11-20 00:00:00 Completed [facility] [place] Polio (IPV/OPV) 2002-11-20 00:00:00 Completed [facility] [place] DTAP 2002-11-20 00:00:00 Completed [facility] [place] MMR 2002-11-20 00:00:00 Completed [facility] [place] Polio (IPV/OPV) 2002-11-20 00:00:00 Completed [facility] [place] DTAP 2002-11-20 00:00:00 Completed [facility] [place] MMR 2002-11-20 00:00:00 Completed [facility] [place] Polio (IPV/OPV) 2002-11-20 00:00:00 Completed [facility] [place] DTaP, Unspecified Formulation 2002-11-20 00:00:00 Completed [facility] [place] IPV 2002-11-20 00:00:00 Completed [facility] [place] DTAP 2002-11-20 00:00:00 Completed [facility] [place] MMR 2002-11-20 00:00:00 Completed [facility] [place] Polio (IPV/OPV) 2002-11-20 00:00:00 Completed [facility] [place] DTaP, Unspecified Formulation 2002-11-20 00:00:00 Completed [facility] [place] IPV 2002-11-20 00:00:00 Completed [facility] [place] DTAP 2002-11-20 00:00:00 Completed [facility] [place] MMR 2002-11-20 00:00:00 Completed [facility] [place] Polio (IPV/OPV) 2002-11-20 00:00:00 Completed [facility] [place] DTaP, Unspecified Formulation 2002-11-20 00:00:00 Completed [facility] [place] IPV 2002-11-20 00:00:00 Completed [facility] [place] DTAP 2002-11-20 00:00:00 Completed [facility] [place] MMR 2002-11-20 00:00:00 Completed [facility] [place] Polio (IPV/OPV) 2002-11-20 00:00:00 Completed [facility] [place] DTaP, Unspecified Formulation 2002-11-20 00:00:00 Completed [facility] [place] IPV 2002-11-20 00:00:00 Completed [facility] [place] DTAP 2002-11-20 00:00:00 Completed [facility] [place] MMR 2002-11-20 00:00:00 Completed [facility] [place] Polio (IPV/OPV) 2002-11-20 00:00:00 Completed [facility] [place] DTaP, Unspecified Formulation 2002-11-20 00:00:00 Completed [facility] [place] IPV 2002-11-20 00:00:00 Completed [facility] [place] DTAP 2002-11-20 00:00:00 Completed [facility] [place] MMR 2002-11-20 00:00:00 Completed [facility] [place] Polio (IPV/OPV) 2002-11-20 00:00:00 Completed [facility] [place] DTaP, Unspecified Formulation 2002-11-20 00:00:00 Completed [facility] [place] IPV 2002-11-20 00:00:00 Completed [facility] [place] DTAP 2002-11-20 00:00:00 Completed [facility] [place] MMR 2002-11-20 00:00:00 Completed [facility] [place] Polio (IPV/OPV) 2002-11-20 00:00:00 Completed [facility] [place] DTaP, Unspecified Formulation 2002-11-20 00:00:00 Completed [facility] [place] IPV 2002-11-20 00:00:00 Completed [facility] [place] Varicella (varivax)(chicken pox) 2002-06-29 00:00:00 Completed [facility] [place] Varicella (varivax)(chicken pox) 2002-06-29 00:00:00 Completed [facility] [place] Varicella (varivax)(chicken pox) 2002-06-29 00:00:00 Completed [facility] [place] Varicella (varivax)(chicken pox) 2002-06-29 00:00:00 Completed [facility] [place] Varicella (varivax)(chicken pox) 2002-06-29 00:00:00 Completed [facility] [place] Varicella (varivax)(chicken pox) 2002-06-29 00:00:00 Completed [facility] [place] Varicella (varivax)(chicken pox) 2002-06-29 00:00:00 Completed [facility] [place] Varicella (varivax)(chicken pox) 2002-06-29 00:00:00 Completed [facility] [place] Varicella (varivax)(chicken pox) 2002-06-29 00:00:00 Completed [facility] [place] Varicella (varivax)(chicken pox) 2002-06-29 00:00:00 Completed [facility] [place] Varicella (varivax)(chicken pox) 2002-06-29 00:00:00 Completed [facility] [place] Varicella (varivax)(chicken pox) 2002-06-29 00:00:00 Completed [facility] [place] Varicella (varivax)(chicken pox) 2002-06-29 00:00:00 Completed [facility] [place] Varicella (varivax)(chicken pox) 2002-06-29 00:00:00 Completed [facility] [place] Varicella (varivax)(chicken pox) 2002-06-29 00:00:00 Completed [facility] [place] Varicella (varivax)(chicken pox) 2002-06-29 00:00:00 Completed [facility] [place] Varicella (varivax)(chicken pox) 2002-06-29 00:00:00 Completed [facility] [place] Varicella (varivax)(chicken pox) 2002-06-29 00:00:00 Completed [facility] [place] Varicella (varivax)(chicken pox) 2002-06-29 00:00:00 Completed [facility] [place] Varicella (varivax)(chicken pox) 2002-06-29 00:00:00 Completed [facility] [place] Varicella (varivax)(chicken pox) 2002-06-29 00:00:00 Completed [facility] [place] Varicella (varivax)(chicken pox) 2002-06-29 00:00:00 Completed [facility] [place] Varicella (varivax)(chicken pox) 2002-06-29 00:00:00 Completed [facility] [place] Varicella (varivax)(chicken pox) 2002-06-29 00:00:00 Completed [facility] [place] Varicella (varivax)(chicken pox) 2002-06-29 00:00:00 Completed [facility] [place] Varicella (varivax)(chicken pox) 2002-06-29 00:00:00 Completed [facility] [place] Varicella (varivax)(chicken pox) 2002-06-29 00:00:00 Completed [facility] [place] Varicella (varivax)(chicken pox) 2002-06-29 00:00:00 Completed [facility] [place] Varicella (varivax)(chicken pox) 2002-06-29 00:00:00 Completed [facility] [place] Varicella (varivax)(chicken pox) 2002-06-29 00:00:00 Completed [facility] [place] Meningococcal Vaccine 2000-11-13 00:00:00 Completed [facility] [place] Meningococcal Polysaccharide (groups A, C, Y and W-135) conjugate vaccine (MCV4P) 2000-11-13 00:00:00 Completed [facility] [place] Meningococcal Vaccine 2000-11-13 00:00:00 Completed [facility] [place] Meningococcal Polysaccharide (groups A, C, Y and W-135) conjugate vaccine (MCV4P) 2000-11-13 00:00:00 Completed [facility] [place] Meningococcal Vaccine 2000-11-13 00:00:00 Completed [facility] [place] Meningococcal Polysaccharide (groups A, C, Y and W-135) conjugate vaccine (MCV4P) 2000-11-13 00:00:00 Completed [facility] [place] Meningococcal Vaccine 2000-11-13 00:00:00 Completed [facility] [place] Meningococcal Polysaccharide (groups A, C, Y and W-135) conjugate vaccine (MCV4P) 2000-11-13 00:00:00 Completed [facility] [place] Meningococcal Vaccine 2000-11-13 00:00:00 Completed [facility] [place] Meningococcal Polysaccharide (groups A, C, Y and W-135) conjugate vaccine (MCV4P) 2000-11-13 00:00:00 Completed [facility] [place] Meningococcal Vaccine 2000-11-13 00:00:00 Completed [facility] [place] Meningococcal Polysaccharide (groups A, C, Y and W-135) conjugate vaccine (MCV4P) 2000-11-13 00:00:00 Completed [facility] [place] Meningococcal Vaccine 2000-11-13 00:00:00 Completed [facility] [place] Meningococcal Polysaccharide (groups A, C, Y and W-135) conjugate vaccine (MCV4P) 2000-11-13 00:00:00 Completed [facility] [place] Meningococcal Vaccine 2000-11-13 00:00:00 Completed [facility] [place] Meningococcal Polysaccharide (groups A, C, Y and W-135) conjugate vaccine (MCV4P) 2000-11-13 00:00:00 Completed [facility] [place] Meningococcal Vaccine 2000-11-13 00:00:00 Completed [facility] [place] Meningococcal Polysaccharide (groups A, C, Y and W-135) conjugate vaccine (MCV4P) 2000-11-13 00:00:00 Completed [facility] [place] Meningococcal Vaccine 2000-11-13 00:00:00 Completed [facility] [place] Meningococcal Polysaccharide (groups A, C, Y and W-135) conjugate vaccine (MCV4P) 2000-11-13 00:00:00 Completed [facility] [place] Meningococcal Vaccine 2000-11-13 00:00:00 Completed [facility] [place] Meningococcal Polysaccharide (groups A, C, Y and W-135) conjugate vaccine (MCV4P) 2000-11-13 00:00:00 Completed [facility] [place] Meningococcal Vaccine 2000-11-13 00:00:00 Completed [facility] [place] Meningococcal Polysaccharide (groups A, C, Y and W-135) conjugate vaccine (MCV4P) 2000-11-13 00:00:00 Completed [facility] [place] Meningococcal Vaccine 2000-11-13 00:00:00 Completed [facility] [place] Meningococcal Polysaccharide (groups A, C, Y and W-135) conjugate vaccine (MCV4P) 2000-11-13 00:00:00 Completed [facility] [place] Meningococcal Vaccine 2000-11-13 00:00:00 Completed [facility] [place] Meningococcal Vaccine 2000-11-13 00:00:00 Completed [facility] [place] Meningococcal Vaccine 2000-11-13 00:00:00 Completed [facility] [place] Meningococcal Vaccine 2000-11-13 00:00:00 Completed [facility] [place] Meningococcal Vaccine 2000-11-13 00:00:00 Completed [facility] [place] Meningococcal Vaccine 2000-11-13 00:00:00 Completed [facility] [place] Meningococcal Vaccine 2000-11-13 00:00:00 Completed [facility] [place] Meningococcal Polysaccharide (groups A, C, Y and W-135) conjugate vaccine (MCV4P) 2000-11-13 00:00:00 Completed [facility] [place] Meningococcal Vaccine 2000-11-13 00:00:00 Completed [facility] [place] Meningococcal Polysaccharide (groups A, C, Y and W-135) conjugate vaccine (MCV4P) 2000-11-13 00:00:00 Completed [facility] [place] Meningococcal Vaccine 2000-11-13 00:00:00 Completed [facility] [place] Meningococcal Polysaccharide (groups A, C, Y and W-135) conjugate vaccine (MCV4P) 2000-11-13 00:00:00 Completed [facility] [place] Meningococcal Vaccine 2000-11-13 00:00:00 Completed [facility] [place] Meningococcal Polysaccharide (groups A, C, Y and W-135) conjugate vaccine (MCV4P) 2000-11-13 00:00:00 Completed [facility] [place] Meningococcal Vaccine 2000-11-13 00:00:00 Completed [facility] [place] Meningococcal Polysaccharide (groups A, C, Y and W-135) conjugate vaccine (MCV4P) 2000-11-13 00:00:00 Completed [facility] [place] Meningococcal Vaccine 2000-11-13 00:00:00 Completed [facility] [place] Meningococcal Polysaccharide (groups A, C, Y and W-135) conjugate vaccine (MCV4P) 2000-11-13 00:00:00 Completed [facility] [place] Meningococcal Vaccine 2000-11-13 00:00:00 Completed [facility] [place] Meningococcal Polysaccharide (groups A, C, Y and W-135) conjugate vaccine (MCV4P) 2000-11-13 00:00:00 Completed [facility] [place] Meningococcal Vaccine 2000-11-13 00:00:00 Completed [facility] [place] Meningococcal Polysaccharide (groups A, C, Y and W-135) conjugate vaccine (MCV4P) 2000-11-13 00:00:00 Completed [facility] [place] Meningococcal Vaccine 2000-11-13 00:00:00 Completed [facility] [place] Meningococcal Polysaccharide (groups A, C, Y and W-135) conjugate vaccine (MCV4P) 2000-11-13 00:00:00 Completed [facility] [place] Meningococcal Vaccine 2000-11-13 00:00:00 Completed [facility] [place] Meningococcal Polysaccharide (groups A, C, Y and W-135) conjugate vaccine (MCV4P) 2000-11-13 00:00:00 Completed [facility] [place] Meningococcal Vaccine 2000-11-13 00:00:00 Completed [facility] [place] Meningococcal Polysaccharide (groups A, C, Y and W-135) conjugate vaccine (MCV4P) 2000-11-13 00:00:00 Completed [facility] [place] DTAP 1997 00:00:00 Completed [facility] [place] HIB 4 Dose Schedule 1997 00:00:00 Completed [facility] [place] Hep B, Adol or Pedi Dosage 1997 00:00:00 Completed [facility] [place] Polio (IPV/OPV) 1997 00:00:00 Completed [facility] [place] DTaP, Unspecified Formulation 1997 00:00:00 Completed [facility] [place] Haemophilus influenzae type b vaccine, conjugate unspecified formulation 1997 00:00:00 Completed [facility] [place] Hib-HbOC 1997 00:00:00 Completed [facility] [place] IPV 1997 00:00:00 Completed [facility] [place] DTAP 1997 00:00:00 Completed [facility] [place] HIB 4 Dose Schedule 1997 00:00:00 Completed [facility] [place] Hep B, Adol or Pedi Dosage 1997 00:00:00 Completed [facility] [place] Polio (IPV/OPV) 1997 00:00:00 Completed [facility] [place] DTaP, Unspecified Formulation 1997 00:00:00 Completed [facility] [place] Haemophilus influenzae type b vaccine, conjugate unspecified formulation 1997 00:00:00 Completed [facility] [place] Hib-HbOC 1997 00:00:00 Completed [facility] [place] IPV 1997 00:00:00 Completed [facility] [place] DTAP 1997 00:00:00 Completed [facility] [place] HIB 4 Dose Schedule 1997 00:00:00 Completed [facility] [place] Hep B, Adol or Pedi Dosage 1997 00:00:00 Completed [facility] [place] Polio (IPV/OPV) 1997 00:00:00 Completed [facility] [place] DTaP, Unspecified Formulation 1997 00:00:00 Completed [facility] [place] Haemophilus influenzae type b vaccine, conjugate unspecified formulation 1997 00:00:00 Completed [facility] [place] Hib-HbOC 1997 00:00:00 Completed [facility] [place] IPV 1997 00:00:00 Completed [facility] [place] DTAP 1997 00:00:00 Completed [facility] [place] HIB 4 Dose Schedule 1997 00:00:00 Completed [facility] [place] Hep B, Adol or Pedi Dosage 1997 00:00:00 Completed [facility] [place] Polio (IPV/OPV) 1997 00:00:00 Completed [facility] [place] DTaP, Unspecified Formulation 1997 00:00:00 Completed [facility] [place] Haemophilus influenzae type b vaccine, conjugate unspecified formulation 1997 00:00:00 Completed [facility] [place] Hib-HbOC 1997 00:00:00 Completed [facility] [place] IPV 1997 00:00:00 Completed [facility] [facility] DTAP 1997 00:00:00 Completed [facility] HIB 4 Dose Schedule 1997 00:00:00 Completed [facility] Hep B, Adol or Pedi Dosage 1997 00:00:00 Completed [facility] Polio (IPV/OPV) 1997 00:00:00 Completed [facility] DTaP, Unspecified Formulation 1997 00:00:00 Completed [facility] Haemophilus influenzae type b vaccine, conjugate unspecified formulation 1997 00:00:00 Completed [facility] Hib-HbOC 1997 00:00:00 Completed [facility] IPV 1997 00:00:00 Completed [facility] DTAP 1997 00:00:00 Completed [facility] HIB 4 Dose Schedule 1997 00:00:00 Completed [facility] Hep B, Adol or Pedi Dosage 1997 00:00:00 Completed [facility] Polio (IPV/OPV) 1997 00:00:00 Completed [facility] DTaP, Unspecified Formulation 1997 00:00:00 Completed [facility] Haemophilus influenzae type b vaccine, conjugate unspecified formulation 1997 00:00:00 Completed [facility] Hib-HbOC 1997 00:00:00 Completed [facility] IPV 1997 00:00:00 Completed [facility] DTAP 1997 00:00:00 Completed [facility] HIB 4 Dose Schedule 1997 00:00:00 Completed [facility] Hep B, Adol or Pedi Dosage 1997 00:00:00 Completed [facility] Polio (IPV/OPV) 1997 00:00:00 Completed [facility] DTaP, Unspecified Formulation 1997 00:00:00 Completed [facility] Haemophilus influenzae type b vaccine, conjugate unspecified formulation 1997 00:00:00 Completed [facility] Hib-HbOC 1997 00:00:00 Completed [facility] IPV 1997 00:00:00 Completed [facility] DTAP 1997 00:00:00 Completed [facility] HIB 4 Dose Schedule 1997 00:00:00 Completed [facility] Hep B, Adol or Pedi Dosage 1997 00:00:00 Completed [facility] Polio (IPV/OPV) 1997 00:00:00 Completed [facility] DTaP, Unspecified Formulation 1997 00:00:00 Completed [facility] Haemophilus influenzae type b vaccine, conjugate unspecified formulation 1997 00:00:00 Completed [facility] Hib-HbOC 1997 00:00:00 Completed [facility] IPV 1997 00:00:00 Completed [facility] DTAP 1997 00:00:00 Completed [facility] HIB 4 Dose Schedule 1997 00:00:00 Completed [facility] Hep B, Adol or Pedi Dosage 1997 00:00:00 Completed [facility] Polio (IPV/OPV) 1997 00:00:00 Completed [facility] DTaP, Unspecified Formulation 1997 00:00:00 Completed [facility] Haemophilus influenzae type b vaccine, conjugate unspecified formulation 1997 00:00:00 Completed [facility] Hib-HbOC 1997 00:00:00 Completed [facility] IPV 1997 00:00:00 Completed [facility] DTAP 1997 00:00:00 Completed [facility] HIB 4 Dose Schedule 1997 00:00:00 Completed [facility] Hep B, Adol or Pedi Dosage 1997 00:00:00 Completed [facility] Polio (IPV/OPV) 1997 00:00:00 Completed [facility] DTaP, Unspecified Formulation 1997 00:00:00 Completed [facility] Haemophilus influenzae type b vaccine, conjugate unspecified formulation 1997 00:00:00 Completed [facility] Hib-HbOC 1997 00:00:00 Completed [facility] IPV 1997 00:00:00 Completed [facility] DTAP 1997 00:00:00 Completed [facility] HIB 4 Dose Schedule 1997 00:00:00 Completed [facility] Hep B, Adol or Pedi Dosage 1997 00:00:00 Completed [facility] Polio (IPV/OPV) 1997 00:00:00 Completed [facility] DTaP, Unspecified Formulation 1997 00:00:00 Completed [facility] Haemophilus influenzae type b vaccine, conjugate unspecified formulation 1997 00:00:00 Completed [facility] Hib-HbOC 1997 00:00:00 Completed [facility] IPV 1997 00:00:00 Completed [facility] DTAP 1997 00:00:00 Completed [facility] HIB 4 Dose Schedule 1997 00:00:00 Completed [facility] Hep B, Adol or Pedi Dosage 1997 00:00:00 Completed [facility] Polio (IPV/OPV) 1997 00:00:00 Completed [facility] DTaP, Unspecified Formulation 1997 00:00:00 Completed [facility] Haemophilus influenzae type b vaccine, conjugate unspecified formulation 1997 00:00:00 Completed [facility] Hib-HbOC 1997 00:00:00 Completed [facility] IPV 1997 00:00:00 Completed [facility] DTAP 1997 00:00:00 Completed [facility] HIB 4 Dose Schedule 1997 00:00:00 Completed [facility] Hep B, Adol or Pedi Dosage 1997 00:00:00 Completed [facility] Polio (IPV/OPV) 1997 00:00:00 Completed [facility] DTaP, Unspecified Formulation 1997 00:00:00 Completed [facility] Haemophilus influenzae type b vaccine, conjugate unspecified formulation 1997 00:00:00 Completed [facility] Hib-HbOC 1997 00:00:00 Completed [facility] IPV 1997 00:00:00 Completed [facility] DTAP 1997 00:00:00 Completed [facility] HIB 4 Dose Schedule 1997 00:00:00 Completed [facility] Hep B, Adol or Pedi Dosage 1997 00:00:00 Completed [facility] Polio (IPV/OPV) 1997 00:00:00 Completed [facility] DTaP, Unspecified Formulation 1997 00:00:00 Completed [facility] Haemophilus influenzae type b vaccine, conjugate unspecified formulation 1997 00:00:00 Completed [facility] Hib-HbOC 1997 00:00:00 Completed [facility] IPV 1997 00:00:00 Completed [facility] DTAP 1997 00:00:00 Completed [facility] HIB 4 Dose Schedule 1997 00:00:00 Completed [facility] Hep B, Adol or Pedi Dosage 1997 00:00:00 Completed [facility] Polio (IPV/OPV) 1997 00:00:00 Completed [facility] DTaP, Unspecified Formulation 1997 00:00:00 Completed [facility] Haemophilus influenzae type b vaccine, conjugate unspecified formulation 1997 00:00:00 Completed [facility] Hib-HbOC 1997 00:00:00 Completed [facility] IPV 1997 00:00:00 Completed [facility] DTAP 1997 00:00:00 Completed [facility] HIB 4 Dose Schedule 1997 00:00:00 Completed [facility] Hep B, Adol or Pedi Dosage 1997 00:00:00 Completed [facility] Polio (IPV/OPV) 1997 00:00:00 Completed [facility] DTaP, Unspecified Formulation 1997 00:00:00 Completed [facility] Haemophilus influenzae type b vaccine, conjugate unspecified formulation 1997 00:00:00 Completed [facility] Hib-HbOC 1997 00:00:00 Completed [facility] IPV 1997 00:00:00 Completed [facility] DTAP 1997 00:00:00 Completed [facility] HIB 4 Dose Schedule 1997 00:00:00 Completed [facility] Hep B, Adol or Pedi Dosage 1997 00:00:00 Completed [facility] Polio (IPV/OPV) 1997 00:00:00 Completed [facility] DTaP, Unspecified Formulation 1997 00:00:00 Completed [facility] Haemophilus influenzae type b vaccine, conjugate unspecified formulation 1997 00:00:00 Completed [facility] Hib-HbOC 1997 00:00:00 Completed [facility] IPV 1997 00:00:00 Completed [facility] DTAP 1997 00:00:00 Completed [facility] HIB 4 Dose Schedule 1997 00:00:00 Completed [facility] Hep B, Adol or Pedi Dosage 1997 00:00:00 Completed [facility] Polio (IPV/OPV) 1997 00:00:00 Completed [facility] DTAP 1997 00:00:00 Completed [facility] HIB 4 Dose Schedule 1997 00:00:00 Completed [facility] Hep B, Adol or Pedi Dosage 1997 00:00:00 Completed [facility] Polio (IPV/OPV) 1997 00:00:00 Completed [facility] DTAP 1997 00:00:00 Completed [facility] HIB 4 Dose Schedule 1997 00:00:00 Completed [facility] Hep B, Adol or Pedi Dosage 1997 00:00:00 Completed [facility] Polio (IPV/OPV) 1997 00:00:00 Completed [facility] DTAP 1997 00:00:00 Completed [facility] HIB 4 Dose Schedule 1997 00:00:00 Completed [facility] Hep B, Adol or Pedi Dosage 1997 00:00:00 Completed [facility] Polio (IPV/OPV) 1997 00:00:00 Completed [facility] DTAP 1997 00:00:00 Completed [facility] HIB 4 Dose Schedule 1997 00:00:00 Completed [facility] Hep B, Adol or Pedi Dosage 1997 00:00:00 Completed [facility] Polio (IPV/OPV) 1997 00:00:00 Completed [facility] DTAP 1997 00:00:00 Completed [facility] HIB 4 Dose Schedule 1997 00:00:00 Completed [facility] Hep B, Adol or Pedi Dosage 1997 00:00:00 Completed [facility] Polio (IPV/OPV) 1997 00:00:00 Completed [facility] DTAP 1997 00:00:00 Completed [facility] HIB 4 Dose Schedule 1997 00:00:00 Completed [facility] Hep B, Adol or Pedi Dosage 1997 00:00:00 Completed [facility] Polio (IPV/OPV) 1997 00:00:00 Completed [facility] DTaP, Unspecified Formulation 1997 00:00:00 Completed [facility] Haemophilus influenzae type b vaccine, conjugate unspecified formulation 1997 00:00:00 Completed [facility] Hib-HbOC 1997 00:00:00 Completed [facility] IPV 1997 00:00:00 Completed [facility] DTAP 1997 00:00:00 Completed [facility] HIB 4 Dose Schedule 1997 00:00:00 Completed [facility] Hep B, Adol or Pedi Dosage 1997 00:00:00 Completed [facility] Polio (IPV/OPV) 1997 00:00:00 Completed [facility] DTaP, Unspecified Formulation 1997 00:00:00 Completed [facility] Haemophilus influenzae type b vaccine, conjugate unspecified formulation 1997 00:00:00 Completed [facility] Hib-HbOC 1997 00:00:00 Completed [facility] IPV 1997 00:00:00 Completed [facility] DTAP 1997 00:00:00 Completed [facility] HIB 4 Dose Schedule 1997 00:00:00 Completed [facility] Hep B, Adol or Pedi Dosage 1997 00:00:00 Completed [facility] Polio (IPV/OPV) 1997 00:00:00 Completed [facility] DTaP, Unspecified Formulation 1997 00:00:00 Completed [facility] Haemophilus influenzae type b vaccine, conjugate unspecified formulation 1997 00:00:00 Completed [facility] Hib-HbOC 1997 00:00:00 Completed [facility] IPV 1997 00:00:00 Completed [facility] DTAP 1997 00:00:00 Completed [facility] HIB 4 Dose Schedule 1997 00:00:00 Completed [facility] Hep B, Adol or Pedi Dosage 1997 00:00:00 Completed [facility] Polio (IPV/OPV) 1997 00:00:00 Completed [facility] DTaP, Unspecified Formulation 1997 00:00:00 Completed [facility] Haemophilus influenzae type b vaccine, conjugate unspecified formulation 1997 00:00:00 Completed [facility] Hib-HbOC 1997 00:00:00 Completed [facility] IPV 1997 00:00:00 Completed [facility] DTAP 1997 00:00:00 Completed [facility] HIB 4 Dose Schedule 1997 00:00:00 Completed [facility] Hep B, Adol or Pedi Dosage 1997 00:00:00 Completed [facility] Polio (IPV/OPV) 1997 00:00:00 Completed [facility] DTaP, Unspecified Formulation 1997 00:00:00 Completed [facility] Haemophilus influenzae type b vaccine, conjugate unspecified formulation 1997 00:00:00 Completed [facility] Hib-HbOC 1997 00:00:00 Completed [facility] IPV 1997 00:00:00 Completed [facility] DTAP 1997 00:00:00 Completed [facility] HIB 4 Dose Schedule 1997 00:00:00 Completed [facility] Hep B, Adol or Pedi Dosage 1997 00:00:00 Completed [facility] Polio (IPV/OPV) 1997 00:00:00 Completed [facility] DTaP, Unspecified Formulation 1997 00:00:00 Completed [facility] Haemophilus influenzae type b vaccine, conjugate unspecified formulation 1997 00:00:00 Completed [facility] Hib-HbOC 1997 00:00:00 Completed [facility] IPV 1997 00:00:00 Completed [facility] DTAP 1997 00:00:00 Completed [facility] HIB 4 Dose Schedule 1997 00:00:00 Completed [facility] Hep B, Adol or Pedi Dosage 1997 00:00:00 Completed [facility] Polio (IPV/OPV) 1997 00:00:00 Completed [facility] DTaP, Unspecified Formulation 1997 00:00:00 Completed [facility] Haemophilus influenzae type b vaccine, conjugate unspecified formulation 1997 00:00:00 Completed [facility] Hib-HbOC 1997 00:00:00 Completed [facility] IPV 1997 00:00:00 Completed [facility] Hep B, Adol or Pedi Dosage 1997 00:00:00 Completed [facility] Hep B, Adol or Pedi Dosage 1997 00:00:00 Completed [facility] Hep B, Adol or Pedi Dosage 1997 00:00:00 Completed [facility] Hep B, Adol or Pedi Dosage 1997 00:00:00 Completed [facility] Hep B, Adol or Pedi Dosage 1997 00:00:00 Completed [facility] Hep B, Adol or Pedi Dosage 1997 00:00:00 Completed [facility] Hep B, Adol or Pedi Dosage 1997 00:00:00 Completed [facility] Hep B, Adol or Pedi Dosage 1997 00:00:00 Completed [facility] Hep B, Adol or Pedi Dosage 1997 00:00:00 Completed [facility] Hep B, Adol or Pedi Dosage 1997 00:00:00 Completed [facility] Hep B, Adol or Pedi Dosage 1997 00:00:00 Completed [facility] Hep B, Adol or Pedi Dosage 1997 00:00:00 Completed [facility] Hep B, Adol or Pedi Dosage 1997 00:00:00 Completed [facility] Hep B, Adol or Pedi Dosage 1997 00:00:00 Completed [facility] Hep B, Adol or Pedi Dosage 1997 00:00:00 Completed [facility] Hep B, Adol or Pedi Dosage 1997 00:00:00 Completed [facility] Hep B, Adol or Pedi Dosage 1997 00:00:00 Completed [facility] Hep B, Adol or Pedi Dosage 1997 00:00:00 Completed [facility] Hep B, Adol or Pedi Dosage 1997 00:00:00 Completed [facility] Hep B, Adol or Pedi Dosage 1997 00:00:00 Completed [facility] Hep B, Adol or Pedi Dosage 1997 00:00:00 Completed [facility] Hep B, Adol or Pedi Dosage 1997 00:00:00 Completed [facility] Hep B, Adol or Pedi Dosage 1997 00:00:00 Completed [facility] Hep B, Adol or Pedi Dosage 1997 00:00:00 Completed [facility] Hep B, Adol or Pedi Dosage 1997 00:00:00 Completed [facility] Hep B, Adol or Pedi Dosage 1997 00:00:00 Completed [facility] Hep B, Adol or Pedi Dosage 1997 00:00:00 Completed [facility] Hep B, Adol or Pedi Dosage 1997 00:00:00 Completed [facility] Hep B, Adol or Pedi Dosage 1997 00:00:00 Completed [facility] Hep B, Adol or Pedi Dosage 1997 00:00:00 Completed [facility] Polio (IPV/OPV) 1997 00:00:00 Completed [facility] Polio (IPV/OPV) 1997 00:00:00 Completed [facility] Polio (IPV/OPV) 1997 00:00:00 Completed [facility] Polio (IPV/OPV) 1997 00:00:00 Completed [facility] Polio (IPV/OPV) 1997 00:00:00 Completed [facility] Polio (IPV/OPV) 1997 00:00:00 Completed [facility] Polio (IPV/OPV) 1997 00:00:00 Completed [facility] Polio (IPV/OPV) 1997 00:00:00 Completed [facility] Polio (IPV/OPV) 1997 00:00:00 Completed [facility] Polio (IPV/OPV) 1997 00:00:00 Completed [facility] Polio (IPV/OPV) 1997 00:00:00 Completed [facility] Polio (IPV/OPV) 1997 00:00:00 Completed [facility] Polio (IPV/OPV) 1997 00:00:00 Completed [facility] Polio (IPV/OPV) 1997 00:00:00 Completed [facility] Polio (IPV/OPV) 1997 00:00:00 Completed [facility] Polio (IPV/OPV) 1997 00:00:00 Completed [facility] Polio (IPV/OPV) 1997 00:00:00 Completed [facility] Polio (IPV/OPV) 1997 00:00:00 Completed [facility] Polio (IPV/OPV) 1997 00:00:00 Completed [facility] Polio (IPV/OPV) 1997 00:00:00 Completed [facility] Polio (IPV/OPV) 1997 00:00:00 Completed [facility] Polio (IPV/OPV) 1997 00:00:00 Completed [facility] Polio (IPV/OPV) 1997 00:00:00 Completed [facility] Polio (IPV/OPV) 1997 00:00:00 Completed [facility] Polio (IPV/OPV) 1997 00:00:00 Completed [facility] Polio (IPV/OPV) 1997 00:00:00 Completed [facility] Polio (IPV/OPV) 1997 00:00:00 Completed [facility] Polio (IPV/OPV) 1997 00:00:00 Completed [facility] Polio (IPV/OPV) 1997 00:00:00 Completed [facility] Polio (IPV/OPV) 1997 00:00:00 Completed [facility] DTAP 1997 00:00:00 Completed [facility] DTaP, Unspecified Formulation 1997 00:00:00 Completed [facility] Haemophilus influenzae type b vaccine, conjugate unspecified formulation 1997 00:00:00 Completed [facility] Poliovirus, Live, Oral, Trivalent 1997 00:00:00 Completed [facility] DTAP 1997 00:00:00 Completed [facility] DTaP, Unspecified Formulation 1997 00:00:00 Completed [facility] Haemophilus influenzae type b vaccine, conjugate unspecified formulation 1997 00:00:00 Completed [facility] Poliovirus, Live, Oral, Trivalent 1997 00:00:00 Completed [facility] DTAP 1997 00:00:00 Completed [facility] DTaP, Unspecified Formulation 1997 00:00:00 [facility] [facility] Haemophilus influenzae type b vaccine, conjugate unspecified formulation 1997 00:00:00 Completed [facility] Poliovirus, Live, Oral, Trivalent 1997 00:00:00 Completed [facility] DTAP 1997 00:00:00 Completed [facility] DTaP, Unspecified Formulation 1997 00:00:00 Completed [facility] Haemophilus influenzae type b vaccine, conjugate unspecified formulation 1997 00:00:00 Completed [facility] Poliovirus, Live, Oral, Trivalent 1997 00:00:00 Completed [facility] DTAP 1997 00:00:00 Completed [facility] DTaP, Unspecified Formulation 1997 00:00:00 Completed [facility] Haemophilus influenzae type b vaccine, conjugate unspecified formulation 1997 00:00:00 Completed [facility] Poliovirus, Live, Oral, Trivalent 1997 00:00:00 Completed [facility] DTAP 1997 00:00:00 Completed [facility] DTaP, Unspecified Formulation 1997 00:00:00 Completed [facility] Haemophilus influenzae type b vaccine, conjugate unspecified formulation 1997 00:00:00 Completed [facility] Poliovirus, Live, Oral, Trivalent 1997 00:00:00 Completed [facility] DTAP 1997 00:00:00 Completed [facility] DTaP, Unspecified Formulation 1997 00:00:00 Completed [facility] Haemophilus influenzae type b vaccine, conjugate unspecified formulation 1997 00:00:00 Completed [facility] Poliovirus, Live, Oral, Trivalent 1997 00:00:00 Completed [facility] DTAP 1997 00:00:00 Completed [facility] DTaP, Unspecified Formulation 1997 00:00:00 Completed [facility] Haemophilus influenzae type b vaccine, conjugate unspecified formulation 1997 00:00:00 Completed [facility] Poliovirus, Live, Oral, Trivalent 1997 00:00:00 Completed [facility] DTAP 1997 00:00:00 Completed [facility] DTaP, Unspecified Formulation 1997 00:00:00 Completed [facility] Haemophilus influenzae type b vaccine, conjugate unspecified formulation 1997 00:00:00 Completed [facility] Poliovirus, Live, Oral, Trivalent 1997 00:00:00 Completed [facility] DTAP 1997 00:00:00 Completed [facility] DTaP, Unspecified Formulation 1997 00:00:00 Completed [facility] Haemophilus influenzae type b vaccine, conjugate unspecified formulation 1997 00:00:00 Completed [facility] Poliovirus, Live, Oral, Trivalent 1997 00:00:00 Completed [facility] DTAP 1997 00:00:00 Completed [facility] DTaP, Unspecified Formulation 1997 00:00:00 Completed [facility] Haemophilus influenzae type b vaccine, conjugate unspecified formulation 1997 00:00:00 Completed [facility] Poliovirus, Live, Oral, Trivalent 1997 00:00:00 Completed [facility] DTAP 1997 00:00:00 Completed [facility] DTaP, Unspecified Formulation 1997 00:00:00 Completed [facility] Haemophilus influenzae type b vaccine, conjugate unspecified formulation 1997 00:00:00 Completed [facility] Poliovirus, Live, Oral, Trivalent 1997 00:00:00 Completed [facility] DTAP 1997 00:00:00 Completed [facility] DTaP, Unspecified Formulation 1997 00:00:00 Completed [facility] Haemophilus influenzae type b vaccine, conjugate unspecified formulation 1997 00:00:00 Completed [facility] Poliovirus, Live, Oral, Trivalent 1997 00:00:00 Completed [facility] DTAP 1997 00:00:00 Completed [facility] DTaP, Unspecified Formulation 1997 00:00:00 Completed [facility] Haemophilus influenzae type b vaccine, conjugate unspecified formulation 1997 00:00:00 Completed [facility] Poliovirus, Live, Oral, Trivalent 1997 00:00:00 Completed [facility] DTAP 1997 00:00:00 Completed [facility] DTaP, Unspecified Formulation 1997 00:00:00 Completed [facility] Haemophilus influenzae type b vaccine, conjugate unspecified formulation 1997 00:00:00 Completed [facility] Poliovirus, Live, Oral, Trivalent 1997 00:00:00 Completed [facility] DTAP 1997 00:00:00 Completed [facility] DTaP, Unspecified Formulation 1997 00:00:00 Completed [facility] Haemophilus influenzae type b vaccine, conjugate unspecified formulation 1997 00:00:00 Completed [facility] Poliovirus, Live, Oral, Trivalent 1997 00:00:00 Completed [facility] DTAP 1997 00:00:00 Completed [facility] DTaP, Unspecified Formulation 1997 00:00:00 Completed [facility] Haemophilus influenzae type b vaccine, conjugate unspecified formulation 1997 00:00:00 Completed [facility] Poliovirus, Live, Oral, Trivalent 1997 00:00:00 Completed [facility] DTAP 1997 00:00:00 Completed [facility] DTAP 1997 00:00:00 Completed [facility] DTAP 1997 00:00:00 Completed [facility] DTAP 1997 00:00:00 Completed [facility] DTAP 1997 00:00:00 Completed [facility] DTAP 1997 00:00:00 Completed [facility] DTAP 1997 00:00:00 Completed [facility] DTaP, Unspecified Formulation 1997 00:00:00 Completed [facility] Haemophilus influenzae type b vaccine, conjugate unspecified formulation 1997 00:00:00 Completed [facility] Poliovirus, Live, Oral, Trivalent 1997 00:00:00 Completed [facility] DTAP 1997 00:00:00 Completed [facility] DTaP, Unspecified Formulation 1997 00:00:00 Completed [facility] Haemophilus influenzae type b vaccine, conjugate unspecified formulation 1997 00:00:00 Completed [facility] Poliovirus, Live, Oral, Trivalent 1997 00:00:00 Completed [facility] DTAP 1997 00:00:00 Completed [facility] DTaP, Unspecified Formulation 1997 00:00:00 Completed [facility] Haemophilus influenzae type b vaccine, conjugate unspecified formulation 1997 00:00:00 Completed [facility] Poliovirus, Live, Oral, Trivalent 1997 00:00:00 Completed [facility] DTAP 1997 00:00:00 Completed [facility] DTaP, Unspecified Formulation 1997 00:00:00 Completed [facility] Haemophilus influenzae type b vaccine, conjugate unspecified formulation 1997 00:00:00 Completed [facility] Poliovirus, Live, Oral, Trivalent 1997 00:00:00 Completed [facility] DTAP 1997 00:00:00 Completed [facility] DTaP, Unspecified Formulation 1997 00:00:00 Completed [facility] Haemophilus influenzae type b vaccine, conjugate unspecified formulation 1997 00:00:00 Completed [facility] Poliovirus, Live, Oral, Trivalent 1997 00:00:00 Completed [facility] DTAP 1997 00:00:00 Completed [facility] DTaP, Unspecified Formulation 1997 00:00:00 Completed [facility] Haemophilus influenzae type b vaccine, conjugate unspecified formulation 1997 00:00:00 Completed [facility] Poliovirus, Live, Oral, Trivalent 1997 00:00:00 Completed [facility] DTAP 1997 00:00:00 Completed [facility] DTaP, Unspecified Formulation 1997 00:00:00 Completed [facility] Haemophilus influenzae type b vaccine, conjugate unspecified formulation 1997 00:00:00 Completed [facility] Poliovirus, Live, Oral, Trivalent 1997 00:00:00 Completed [facility] DTAP 1997 00:00:00 Completed [facility] HIB 4 Dose Schedule 1997 00:00:00 Completed [facility] Polio (IPV/OPV) 1997 00:00:00 Completed [facility] DTAP 1997 00:00:00 Completed [facility] HIB 4 Dose Schedule 1997 00:00:00 Completed [facility] Polio (IPV/OPV) 1997 00:00:00 Completed [facility] DTAP 1997 00:00:00 Completed [facility] HIB 4 Dose Schedule 1997 00:00:00 Completed [facility] Polio (IPV/OPV) 1997 00:00:00 Completed [facility] DTAP 1997 00:00:00 Completed [facility] HIB 4 Dose Schedule 1997 00:00:00 Completed [facility] Polio (IPV/OPV) 1997 00:00:00 Completed [facility] DTAP 1997 00:00:00 Completed [facility] HIB 4 Dose Schedule 1997 00:00:00 Completed [facility] Polio (IPV/OPV) 1997 00:00:00 Completed [facility] DTAP 1997 00:00:00 Completed [facility] HIB 4 Dose Schedule 1997 00:00:00 Completed [facility] Polio (IPV/OPV) 1997 00:00:00 Completed [facility] DTAP 1997 00:00:00 Completed [facility] HIB 4 Dose Schedule 1997 00:00:00 Completed [facility] Polio (IPV/OPV) 1997 00:00:00 Completed [facility] DTAP 1997 00:00:00 Completed [facility] HIB 4 Dose Schedule 1997 00:00:00 Completed [facility] Polio (IPV/OPV) 1997 00:00:00 Completed [facility] DTAP 1997 00:00:00 Completed [facility] HIB 4 Dose Schedule 1997 00:00:00 Completed [facility] Polio (IPV/OPV) 1997 00:00:00 Completed [facility] DTAP 1997 00:00:00 Completed [facility] HIB 4 Dose Schedule 1997 00:00:00 Completed [facility] Polio (IPV/OPV) 1997 00:00:00 Completed [facility] DTAP 1997 00:00:00 Completed [facility] HIB 4 Dose Schedule 1997 00:00:00 Completed [facility] Polio (IPV/OPV) 1997 00:00:00 Completed [facility] DTAP 1997 00:00:00 Completed [facility] HIB 4 Dose Schedule 1997 00:00:00 Completed [facility] Polio (IPV/OPV) 1997 00:00:00 Completed [facility] DTAP 1997 00:00:00 Completed [facility] HIB 4 Dose Schedule 1997 00:00:00 Completed [facility] Polio (IPV/OPV) 1997 00:00:00 Completed [facility] DTAP 1997 00:00:00 Completed [facility] HIB 4 Dose Schedule 1997 00:00:00 Completed [facility] Polio (IPV/OPV) 1997 00:00:00 Completed [facility] DTAP 1997 00:00:00 Completed [facility] HIB 4 Dose Schedule 1997 00:00:00 Completed [facility] Polio (IPV/OPV) 1997 00:00:00 Completed [facility] DTAP 1997 00:00:00 Completed [facility] HIB 4 Dose Schedule 1997 00:00:00 Completed [facility] Polio (IPV/OPV) 1997 00:00:00 Completed [facility] DTAP 1997 00:00:00 Completed [facility] HIB 4 Dose Schedule 1997 00:00:00 Completed [facility] Polio (IPV/OPV) 1997 00:00:00 Completed [facility] DTAP 1997 00:00:00 Completed [facility] HIB 4 Dose Schedule 1997 00:00:00 Completed [facility] Polio (IPV/OPV) 1997 00:00:00 Completed [facility] DTAP 1997 00:00:00 Completed [facility] HIB 4 Dose Schedule 1997 00:00:00 Completed [facility] Polio (IPV/OPV) 1997 00:00:00 Completed [facility] DTAP 1997 00:00:00 Completed [facility] HIB 4 Dose Schedule 1997 00:00:00 Completed [facility] Polio (IPV/OPV) 1997 00:00:00 Completed [facility] DTAP 1997 00:00:00 Completed [facility] HIB 4 Dose Schedule 1997 00:00:00 Completed [facility] Polio (IPV/OPV) 1997 00:00:00 Completed [facility] DTAP 1997 00:00:00 Completed [facility] HIB 4 Dose Schedule 1997 00:00:00 Completed [facility] Polio (IPV/OPV) 1997 00:00:00 Completed [facility] DTAP 1997 00:00:00 Completed [facility] HIB 4 Dose Schedule 1997 00:00:00 Completed [facility] Polio (IPV/OPV) 1997 00:00:00 Completed [facility] DTAP 1997 00:00:00 Completed [facility] HIB 4 Dose Schedule 1997 00:00:00 Completed [facility] Polio (IPV/OPV) 1997 00:00:00 Completed [facility] DTAP 1997 00:00:00 Completed [facility] HIB 4 Dose Schedule 1997 00:00:00 Completed [facility] Polio (IPV/OPV) 1997 00:00:00 Completed [facility] DTAP 1997 00:00:00 Completed [facility] HIB 4 Dose Schedule 1997 00:00:00 Completed [facility] Polio (IPV/OPV) 1997 00:00:00 Completed [facility] DTAP 1997 00:00:00 Completed [facility] HIB 4 Dose Schedule 1997 00:00:00 Completed [facility] Polio (IPV/OPV) 1997 00:00:00 Completed [facility] DTAP 1997 00:00:00 Completed [facility] HIB 4 Dose Schedule 1997 00:00:00 Completed [facility] Polio (IPV/OPV) 1997 00:00:00 Completed [facility] DTAP 1997 00:00:00 Completed [facility] HIB 4 Dose Schedule 1997 00:00:00 Completed [facility] Polio (IPV/OPV) 1997 00:00:00 Completed [facility] DTAP 1997 00:00:00 Completed [facility] HIB 4 Dose Schedule 1997 00:00:00 Completed [facility] Polio (IPV/OPV) 1997 00:00:00 Completed [facility] Hep B, Adol or Pedi Dosage 1997 00:00:00 Completed [facility] Hep B, Adol or Pedi Dosage 1997 00:00:00 Completed [facility] Hep B, Adol or Pedi Dosage 1997 00:00:00 Completed [facility] Hep B, Adol or Pedi Dosage 1997 00:00:00 Completed [facility] Hep B, Adol or Pedi Dosage 1997 00:00:00 Completed [facility] Hep B, Adol or Pedi Dosage 1997 00:00:00 Completed [facility] Hep B, Adol or Pedi Dosage 1997 00:00:00 Completed [facility] Hep B, Adol or Pedi Dosage 1997 00:00:00 Completed [facility] Hep B, Adol or Pedi Dosage 1997 00:00:00 Completed [facility] Hep B, Adol or Pedi Dosage 1997 00:00:00 Completed [facility] Hep B, Adol or Pedi Dosage 1997 00:00:00 Completed [facility] Hep B, Adol or Pedi Dosage 1997 00:00:00 Completed [facility] Hep B, Adol or Pedi Dosage 1997 00:00:00 Completed [facility] Hep B, Adol or Pedi Dosage 1997 00:00:00 Completed [facility] Hep B, Adol or Pedi Dosage 1997 00:00:00 Completed [facility] Hep B, Adol or Pedi Dosage 1997 00:00:00 Completed [facility] Hep B, Adol or Pedi Dosage 1997 00:00:00 Completed [facility] Hep B, Adol or Pedi Dosage 1997 00:00:00 Completed [facility] Hep B, Adol or Pedi Dosage 1997 00:00:00 Completed [facility] Hep B, Adol or Pedi Dosage 1997 00:00:00 Completed [facility] Hep B, Adol or Pedi Dosage 1997 00:00:00 Completed [facility] Hep B, Adol or Pedi Dosage 1997 00:00:00 Completed [facility] Hep B, Adol or Pedi Dosage 1997 00:00:00 Completed [facility] Hep B, Adol or Pedi Dosage 1997 00:00:00 Completed [facility] Hep B, Adol or Pedi Dosage 1997 00:00:00 Completed [facility] Hep B, Adol or Pedi Dosage 1997 00:00:00 Completed [facility] Hep B, Adol or Pedi Dosage 1997 00:00:00 Completed [facility] Hep B, Adol or Pedi Dosage 1997 00:00:00 Completed [facility] Hep B, Adol or Pedi Dosage 1997 00:00:00 Completed [facility] Hep B, Adol or Pedi Dosage 1997 00:00:00 Completed [facility] DTAP 1997 00:00:00 Completed [facility] HIB 4 Dose Schedule 1997 00:00:00 Completed [facility] Hep B, Adol or Pedi Dosage 1997 00:00:00 Completed [facility] Polio (IPV/OPV) 1997 00:00:00 Completed [facility] DTaP, Unspecified Formulation 1997 00:00:00 Completed [facility] Haemophilus influenzae type b vaccine, conjugate unspecified formulation 1997 00:00:00 Completed [facility] Hib-HbOC 1997 00:00:00 Completed [facility] IPV 1997 00:00:00 Completed [facility] DTAP 1997 00:00:00 Completed [facility] HIB 4 Dose Schedule 1997 00:00:00 Completed [facility] Hep B, Adol or Pedi Dosage 1997 00:00:00 Completed [facility] Polio (IPV/OPV) 1997 00:00:00 Completed [facility] DTaP, Unspecified Formulation 1997 00:00:00 Completed [facility] Haemophilus influenzae type b vaccine, conjugate unspecified formulation 1997 00:00:00 Completed [facility] Hib-HbOC 1997 00:00:00 Completed [facility] IPV 1997 00:00:00 Completed [facility] DTAP 1997 00:00:00 Completed [facility] HIB 4 Dose Schedule 1997 00:00:00 Completed [facility] Hep B, Adol or Pedi Dosage 1997 00:00:00 Completed [facility] Polio (IPV/OPV) 1997 00:00:00 Completed [facility] DTaP, Unspecified Formulation 1997 00:00:00 Completed [facility] Haemophilus influenzae type b vaccine, conjugate unspecified formulation 1997 00:00:00 Completed [facility] Hib-HbOC 1997 00:00:00 Completed [facility] IPV 1997 00:00:00 Completed [facility] DTAP 1997 00:00:00 Completed [facility] HIB 4 Dose Schedule 1997 00:00:00 Completed [facility] Hep B, Adol or Pedi Dosage 1997 00:00:00 Completed [facility] Polio (IPV/OPV) 1997 00:00:00 Completed [facility] DTaP, Unspecified Formulation 1997 00:00:00 Completed [facility] Haemophilus influenzae type b vaccine, conjugate unspecified formulation 1997 00:00:00 Completed [facility] Hib-HbOC 1997 00:00:00 Completed [facility] IPV 1997 00:00:00 Completed [facility] DTAP 1997 00:00:00 Completed [facility] HIB 4 Dose Schedule 1997 00:00:00 Completed [facility] Hep B, Adol or Pedi Dosage 1997 00:00:00 Completed [facility] Polio (IPV/OPV) 1997 00:00:00 Completed [facility] DTaP, Unspecified Formulation 1997 00:00:00 Completed [facility] Haemophilus influenzae type b vaccine, conjugate unspecified formulation 1997 00:00:00 Completed [facility] Hib-HbOC 1997 00:00:00 Completed [facility] IPV 1997 00:00:00 Completed [facility] DTAP 1997 00:00:00 Completed [facility] HIB 4 Dose Schedule 1997 00:00:00 Completed [facility] Hep B, Adol or Pedi Dosage 1997 00:00:00 Completed [facility] Polio (IPV/OPV) 1997 00:00:00 Completed [facility] DTaP, Unspecified Formulation 1997 00:00:00 Completed [facility] Haemophilus influenzae type b vaccine, conjugate unspecified formulation 1997 00:00:00 Completed [facility] Hib-HbOC 1997 00:00:00 Completed [facility] IPV 1997 00:00:00 Completed [facility] DTAP 1997 00:00:00 Completed [facility] HIB 4 Dose Schedule 1997 00:00:00 Completed [facility] Hep B, Adol or Pedi Dosage 1997 00:00:00 Completed [facility] Polio (IPV/OPV) 1997 00:00:00 Completed [facility] DTaP, Unspecified Formulation 1997 00:00:00 Completed [facility] Haemophilus influenzae type b vaccine, conjugate unspecified formulation 1997 00:00:00 Completed [facility] Hib-HbOC 1997 00:00:00 Completed [facility] IPV 1997 00:00:00 Completed [facility] DTAP 1997 00:00:00 Completed [facility] HIB 4 Dose Schedule 1997 00:00:00 Completed [facility] Hep B, Adol or Pedi Dosage 1997 00:00:00 Completed [facility] Polio (IPV/OPV) 1997 00:00:00 Completed [facility] DTaP, Unspecified Formulation 1997 00:00:00 Completed [facility] Haemophilus influenzae type b vaccine, conjugate unspecified formulation 1997 00:00:00 Completed [facility] Hib-HbOC 1997 00:00:00 Completed [facility] IPV 1997 00:00:00 Completed [facility] DTAP 1997 00:00:00 Completed [facility] HIB 4 Dose Schedule 1997 00:00:00 Completed [facility] Hep B, Adol or Pedi Dosage 1997 00:00:00 Completed [facility] Polio (IPV/OPV) 1997 00:00:00 Completed [facility] DTaP, Unspecified Formulation 1997 00:00:00 Completed [facility] Haemophilus influenzae type b vaccine, conjugate unspecified formulation 1997 00:00:00 Completed [facility] Hib-HbOC 1997 00:00:00 Completed [facility] IPV 1997 00:00:00 Completed [facility] DTAP 1997 00:00:00 Completed [facility] HIB 4 Dose Schedule 1997 00:00:00 Completed [facility] Hep B, Adol or Pedi Dosage 1997 00:00:00 Completed [facility] Polio (IPV/OPV) 1997 00:00:00 Completed [facility] DTaP, Unspecified Formulation 1997 00:00:00 Completed [facility] Haemophilus influenzae type b vaccine, conjugate unspecified formulation 1997 00:00:00 Completed [facility] Hib-HbOC 1997 00:00:00 Completed [facility] IPV 1997 00:00:00 Completed [facility] DTAP 1997 00:00:00 Completed [facility] HIB 4 Dose Schedule 1997 00:00:00 Completed [facility] Hep B, Adol or Pedi Dosage 1997 00:00:00 Completed [facility] Polio (IPV/OPV) 1997 00:00:00 Completed [facility] DTaP, Unspecified Formulation 1997 00:00:00 Completed [facility] Haemophilus influenzae type b vaccine, conjugate unspecified formulation 1997 00:00:00 Completed [facility] Hib-HbOC 1997 00:00:00 Completed [facility] IPV 1997 00:00:00 Completed [facility] DTAP 1997 00:00:00 Completed [facility] HIB 4 Dose Schedule 1997 00:00:00 Completed [facility] Hep B, Adol or Pedi Dosage 1997 00:00:00 Completed [facility] Polio (IPV/OPV) 1997 00:00:00 Completed [facility] DTaP, Unspecified Formulation 1997 00:00:00 Completed [facility] Haemophilus influenzae type b vaccine, conjugate unspecified formulation 1997 00:00:00 Completed [facility] Hib-HbOC 1997 00:00:00 Completed [facility] IPV 1997 00:00:00 Completed [facility] DTAP 1997 00:00:00 Completed [facility] HIB 4 Dose Schedule 1997 00:00:00 Completed [facility] Hep B, Adol or Pedi Dosage 1997 00:00:00 Completed [facility] Polio (IPV/OPV) 1997 00:00:00 Completed [facility] DTaP, Unspecified Formulation 1997 00:00:00 Completed [facility] Haemophilus influenzae type b vaccine, conjugate unspecified formulation 1997 00:00:00 Completed [facility] Hib-HbOC 1997 00:00:00 Completed [facility] IPV 1997 00:00:00 Completed [facility] DTAP 1997 00:00:00 Completed [facility] HIB 4 Dose Schedule 1997 00:00:00 Completed [facility] Hep B, Adol or Pedi Dosage 1997 00:00:00 Completed [facility] Polio (IPV/OPV) 1997 00:00:00 Completed [facility] DTaP, Unspecified Formulation 1997 00:00:00 Completed [facility] Haemophilus influenzae type b vaccine, conjugate unspecified formulation 1997 00:00:00 Completed [facility] Hib-HbOC 1997 00:00:00 Completed [facility] IPV 1997 00:00:00 Completed [facility] DTAP 1997 00:00:00 Completed [facility] HIB 4 Dose Schedule 1997 00:00:00 Completed [facility] Hep B, Adol or Pedi Dosage 1997 00:00:00 Completed [facility] Polio (IPV/OPV) 1997 00:00:00 Completed [facility] DTaP, Unspecified Formulation 1997 00:00:00 Completed [facility] Haemophilus influenzae type b vaccine, conjugate unspecified formulation 1997 00:00:00 Completed [facility] Hib-HbOC 1997 00:00:00 Completed [facility] IPV 1997 00:00:00 Completed [facility] DTAP 1997 00:00:00 Completed [facility] HIB 4 Dose Schedule 1997 00:00:00 Completed [facility] Hep B, Adol or Pedi Dosage 1997 00:00:00 Completed [facility] Polio (IPV/OPV) 1997 00:00:00 Completed [facility] DTaP, Unspecified Formulation 1997 00:00:00 Completed [facility] Haemophilus influenzae type b vaccine, conjugate unspecified formulation 1997 00:00:00 Completed [facility] Hib-HbOC 1997 00:00:00 Completed [facility] IPV 1997 00:00:00 Completed [facility] DTAP 1997 00:00:00 Completed [facility] HIB 4 Dose Schedule 1997 00:00:00 Completed [facility] Hep B, Adol or Pedi Dosage 1997 00:00:00 Completed [facility] Polio (IPV/OPV) 1997 00:00:00 Completed [facility] DTaP, Unspecified Formulation 1997 00:00:00 Completed [facility] Haemophilus influenzae type b vaccine, conjugate unspecified formulation 1997 00:00:00 Completed [facility] Hib-HbOC 1997 00:00:00 Completed [facility] IPV 1997 00:00:00 Completed [facility] DTAP 1997 00:00:00 Completed [facility] HIB 4 Dose Schedule 1997 00:00:00 Completed [facility] Hep B, Adol or Pedi Dosage 1997 00:00:00 Completed [facility] Polio (IPV/OPV) 1997 00:00:00 Completed [facility] DTAP 1997 00:00:00 Completed [facility] HIB 4 Dose Schedule 1997 00:00:00 Completed [facility] Hep B, Adol or Pedi Dosage 1997 00:00:00 Completed [facility] Polio (IPV/OPV) 1997 00:00:00 Completed [facility] DTAP 1997 00:00:00 Completed [facility] HIB 4 Dose Schedule 1997 00:00:00 Completed [facility] Hep B, Adol or Pedi Dosage 1997 00:00:00 Completed [facility] Polio (IPV/OPV) 1997 00:00:00 Completed [facility] DTAP 1997 00:00:00 Completed [facility] HIB 4 Dose Schedule 1997 00:00:00 Completed [facility] Hep B, Adol or Pedi Dosage 1997 00:00:00 Completed [facility] Polio (IPV/OPV) 1997 00:00:00 Completed [facility] DTAP 1997 00:00:00 Completed [facility] HIB 4 Dose Schedule 1997 00:00:00 Completed [facility] Hep B, Adol or Pedi Dosage 1997 00:00:00 Completed [facility] Polio (IPV/OPV) 1997 00:00:00 Completed [facility] DTAP 1997 00:00:00 Completed [facility] HIB 4 Dose Schedule 1997 00:00:00 Completed [facility] Hep B, Adol or Pedi Dosage 1997 00:00:00 Completed [facility] Polio (IPV/OPV) 1997 00:00:00 Completed [facility] DTAP 1997 00:00:00 Completed [facility] HIB 4 Dose Schedule 1997 00:00:00 Completed [facility] Hep B, Adol or Pedi Dosage 1997 00:00:00 Completed [facility] Polio (IPV/OPV) 1997 00:00:00 Completed [facility] DTaP, Unspecified Formulation 1997 00:00:00 Completed [facility] Haemophilus influenzae type b vaccine, conjugate unspecified formulation 1997 00:00:00 Completed [facility] Hib-HbOC 1997 00:00:00 Completed [facility] IPV 1997 00:00:00 Completed [facility] DTAP 1997 00:00:00 Completed [facility] HIB 4 Dose Schedule 1997 00:00:00 Completed [facility] Hep B, Adol or Pedi Dosage 1997 00:00:00 Completed [facility] Polio (IPV/OPV) 1997 00:00:00 Completed [facility] DTaP, Unspecified Formulation 1997 00:00:00 Completed [facility] Haemophilus influenzae type b vaccine, conjugate unspecified formulation 1997 00:00:00 Completed [facility] Hib-HbOC 1997 00:00:00 Completed [facility] IPV 1997 00:00:00 Completed [facility] DTAP 1997 00:00:00 Completed [facility] HIB 4 Dose Schedule 1997 00:00:00 Completed [facility] Hep B, Adol or Pedi Dosage 1997 00:00:00 Completed [facility] Polio (IPV/OPV) 1997 00:00:00 Completed [facility] DTaP, Unspecified Formulation 1997 00:00:00 Completed [facility] Haemophilus influenzae type b vaccine, conjugate unspecified formulation 1997 00:00:00 Completed [facility] Hib-HbOC 1997 00:00:00 Completed [facility] IPV 1997 00:00:00 Completed [facility] DTAP 1997 00:00:00 Completed [facility] HIB 4 Dose Schedule 1997 00:00:00 Completed [facility] Hep B, Adol or Pedi Dosage 1997 00:00:00 Completed [facility] Polio (IPV/OPV) 1997 00:00:00 Completed [facility] DTaP, Unspecified Formulation 1997 00:00:00 Completed [facility] Haemophilus influenzae type b vaccine, conjugate unspecified formulation 1997 00:00:00 Completed [facility] Hib-HbOC 1997 00:00:00 Completed [facility] IPV 1997 00:00:00 Completed [facility] DTAP 1997 00:00:00 Completed [facility] HIB 4 Dose Schedule 1997 00:00:00 Completed [facility] Hep B, Adol or Pedi Dosage 1997 00:00:00 Completed [facility] Polio (IPV/OPV) 1997 00:00:00 Completed [facility] DTaP, Unspecified Formulation 1997 00:00:00 Completed [facility] Haemophilus influenzae type b vaccine, conjugate unspecified formulation 1997 00:00:00 Completed [facility] Hib-HbOC 1997 00:00:00 Completed [facility] IPV 1997 00:00:00 Completed [facility] DTAP 1997 00:00:00 Completed [facility] HIB 4 Dose Schedule 1997 00:00:00 Completed [facility] Hep B, Adol or Pedi Dosage 1997 00:00:00 Completed [facility] Polio (IPV/OPV) 1997 00:00:00 Completed [facility] DTaP, Unspecified Formulation 1997 00:00:00 Completed [facility] Haemophilus influenzae type b vaccine, conjugate unspecified formulation 1997 00:00:00 Completed [facility] Hib-HbOC 1997 00:00:00 Completed [facility] IPV 1997 00:00:00 Completed [facility] DTAP 1997 00:00:00 Completed [facility] HIB 4 Dose Schedule 1997 00:00:00 Completed [facility] Hep B, Adol or Pedi Dosage 1997 00:00:00 Completed [facility] Polio (IPV/OPV) 1997 00:00:00 Completed [facility] DTaP, Unspecified Formulation 1997 00:00:00 Completed [facility] Haemophilus influenzae type b vaccine, conjugate unspecified formulation 1997 00:00:00 Completed [facility] Hib-HbOC 1997 00:00:00 Completed [facility] IPV 1997 00:00:00 Completed [facility] Hep B, Adol or Pedi Dosage 1997 00:00:00 Completed [facility] Hep B, Adol or Pedi Dosage 1997 00:00:00 Completed [facility] Hep B, Adol or Pedi Dosage 1997 00:00:00 Completed [facility] Hep B, Adol or Pedi Dosage 1997 00:00:00 Completed [facility] Hep B, Adol or Pedi Dosage 1997 00:00:00 Completed [facility] Hep B, Adol or Pedi Dosage 1997 00:00:00 Completed [facility] Hep B, Adol or Pedi Dosage 1997 00:00:00 Completed [facility] Hep B, Adol or Pedi Dosage 1997 00:00:00 Completed [facility] Hep B, Adol or Pedi Dosage 1997 00:00:00 Completed [facility] Hep B, Adol or Pedi Dosage 1997 00:00:00 Completed [facility] Hep B, Adol or Pedi Dosage 1997 00:00:00 Completed [facility] Hep B, Adol or Pedi Dosage 1997 00:00:00 Completed [facility] Hep B, Adol or Pedi Dosage 1997 00:00:00 Completed [facility] Hep B, Adol or Pedi Dosage 1997 00:00:00 Completed [facility] Hep B, Adol or Pedi Dosage 1997 00:00:00 Completed [facility] Hep B, Adol or Pedi Dosage 1997 00:00:00 Completed [facility] Hep B, Adol or Pedi Dosage 1997 00:00:00 Completed [facility] Hep B, Adol or Pedi Dosage 1997 00:00:00 Completed [facility] Hep B, Adol or Pedi Dosage 1997 00:00:00 Completed [facility] Hep B, Adol or Pedi Dosage 1997 00:00:00 Completed [facility] Hep B, Adol or Pedi Dosage 1997 00:00:00 Completed [facility] Hep B, Adol or Pedi Dosage 1997 00:00:00 Completed [facility] Hep B, Adol or Pedi Dosage 1997 00:00:00 Completed [facility] Hep B, Adol or Pedi Dosage 1997 00:00:00 Completed [facility] Hep B, Adol or Pedi Dosage 1997 00:00:00 Completed [facility] Hep B, Adol or Pedi Dosage 1997 00:00:00 Completed [facility] Hep B, Adol or Pedi Dosage 1997 00:00:00 Completed [facility] Hep B, Adol or Pedi Dosage 1997 00:00:00 Completed [facility] Hep B, Adol or Pedi Dosage 1997 00:00:00 Completed [facility] Hep B, Adol or Pedi Dosage 1997 00:00:00 Completed [facility] DTAP Unknown Completed [facility] DTAP Unknown Completed [facility] DTAP Unknown Completed [facility] DTAP Unknown Completed [facility] DTAP Unknown Completed [facility] HIB 4 Dose Schedule Unknown Completed [facility] HIB 4 Dose Schedule Unknown Completed [facility] HIB 4 Dose Schedule Unknown Completed [facility] Hep B, Adol or Pedi Dosage Unknown Completed [facility] Hep B, Adol or Pedi Dosage Unknown Completed [facility] Hep B, Adol or Pedi Dosage Unknown Completed [facility] Hep B, Adol or Pedi Dosage Unknown Completed [facility] Hep B, Adol or Pedi Dosage Unknown Completed [facility] Hep B, Adol or Pedi Dosage Unknown Completed [facility] Meningococcal Vaccine Unknown Completed [facility] MMR Unknown Completed [facility] MMR Unknown Completed [facility] Polio (IPV/OPV) Unknown Completed [facility] Polio (IPV/OPV) Unknown Completed [facility] Polio (IPV/OPV) Unknown Completed [facility] Polio (IPV/OPV) Unknown Completed [facility] Polio (IPV/OPV) Unknown Completed [facility] TDAP Unknown Completed [facility] Varicella (varivax)(chicken pox) Unknown Completed [facility] PPD (TB) Unknown Completed [facility] Influenza Virus Vaccine Quad IM 3+ YRS Unknown Completed [facility] TDAP Unknown Completed [facility] HPV9 Unknown Completed [facility] HPV9 Unknown Completed [facility] Influenza Virus Vaccine Quad IM, Preserv and ABX Free 6 MO-64 YRS (FLUCELVAX) Unknown Completed [facility] DTaP, Unspecified Formulation Unknown Completed [facility] DTaP, Unspecified Formulation Unknown Completed [facility] DTaP, Unspecified Formulation Unknown Completed [facility] DTaP, Unspecified Formulation Unknown Completed [facility] Influenza Virus Vaccine - Whole Unknown Completed [facility] Haemophilus influenzae type b vaccine, conjugate unspecified formulation Unknown Completed [facility] Haemophilus influenzae type b vaccine, conjugate unspecified formulation Unknown Completed [facility] Haemophilus influenzae type b vaccine, conjugate unspecified formulation Unknown Completed [facility] Hib-HbOC Unknown Completed [facility] Hib-HbOC Unknown Completed [facility] HPV Unknown Completed [facility] HPV Unknown Completed [facility] Meningococcal Polysaccharide (groups A, C, Y and W-135) conjugate vaccine (MCV4P) Unknown Completed [facility] Meningococcal Polysaccharide (groups A, C, Y and W-135) conjugate vaccine (MCV4P) Unknown Completed [facility] IPV Unknown Completed [facility] IPV Unknown Completed [facility] IPV Unknown Completed [facility] Poliovirus, Live, Oral, Trivalent Unknown Completed [facility] HPV9 Unknown Completed [facility] DTAP Unknown [facility] [facility] DTAP Unknown Completed [facility] DTAP Unknown [facility]pleted [facility] DTAP Unknown [facility]pleted [facility] DTAP Unknown Completed [facility] HIB 4 Dose Schedule Unknown Completed [facility] HIB 4 Dose Schedule Unknown Completed [facility] HIB 4 Dose Schedule Unknown Completed [facility] Hep B, Adol or Pedi Dosage Unknown Completed [facility] Hep B, Adol or Pedi Dosage Unknown Completed [facility] Hep B, Adol or Pedi Dosage Unknown Completed [facility] Hep B, Adol or Pedi Dosage Unknown Completed [facility] Hep B, Adol or Pedi Dosage Unknown Completed [facility] Hep B, Adol or Pedi Dosage Unknown Completed [facility] Meningococcal Vaccine Unknown Completed [facility] MMR Unknown Completed [facility] MMR Unknown Completed [facility] Polio (IPV/OPV) Unknown Completed [facility] Pol[facility] (IPV/OPV) Unknown Completed [facility] Polio (IPV/OPV) Unknown Completed [facility] Polio (IPV/OPV) Unknown Completed [facility] Polio (IPV/OPV) Unknown Completed [facility] TDAP Unknown Completed [facility] Varicella (varivax)(chicken pox) Unknown Completed [facility] PPD (TB) Unknown Completed [facility] Influenza Virus Vaccine Quad IM 3+ YRS Unknown Completed [facility] TDAP Unknown Completed [facility] HPV9 Unknown Completed [facility] HPV9 Unknown Completed [facility] Influenza Virus Vaccine Quad IM, Preserv and ABX Free 6 MO-64 YRS (FLUCELVAX) Unknown Completed [facility] DTaP, Unspecified Formulation Unknown Completed [facility] DTaP, Unspecified Formulation Unknown Completed [facility] DTaP, Unspecified Formulation Unknown Completed [facility] DTaP, Unspecified Formulation Unknown Completed [facility] Influenza Virus Vaccine - Whole Unknown Completed [facility] Haemophilus influenzae type b vaccine, conjugate unspecified formulation Unknown Completed [facility] Haemophilus influenzae type b vaccine, conjugate unspecified formulation Unknown Completed [facility] Haemophilus influenzae type b vaccine, conjugate unspecified formulation Unknown Completed [facility] Hib-HbOC Unknown Completed [facility] Hib-HbOC Unknown Completed [facility] HPV Unknown Completed [facility] HPV Unknown Completed [facility] Meningococcal Polysaccharide (groups A, C, Y and W-135) conjugate vaccine (MCV4P) Unknown Completed [facility] Meningococcal Polysaccharide (groups A, C, Y and W-135) conjugate vaccine (MCV4P) Unknown Completed [facility] IPV Unknown Completed [facility] IPV Unknown Completed [facility] IPV Unknown Completed [facility] Poliovirus, Live, Oral, Trivalent Unknown Completed [facility] HPV9 Unknown Completed [facility] DTAP Unknown Completed [facility] DTAP Unknown [facility]pleted [facility] DTAP Unknown [facility]pleted [facility] DTAP Unknown Completed [facility] DTAP Unknown Completed [facility] HIB 4 Dose Schedule Unknown Completed [facility] HIB 4 Dose Schedule Unknown Completed [facility] HIB 4 Dose Schedule Unknown Completed [facility] Hep B, Adol or Pedi Dosage Unknown Completed [facility] Hep B, Adol or Pedi Dosage Unknown Completed [facility] Hep B, Adol or Pedi Dosage Unknown Completed [facility] Hep B, Adol or Pedi Dosage Unknown Completed [facility] Hep B, Adol or Pedi Dosage Unknown Completed [facility] Hep B, Adol or Pedi Dosage Unknown Completed [facility] Meningococcal Vaccine Unknown Completed [facility] MMR Unknown Completed [facility] MMR Unknown Completed [facility] Polio (IPV[facility]) [facility]) [facility] Polio (IPV/OPV) Unknown Completed [facility] TDAP Unknown Completed [facility] Varicella (varivax)(chicken pox) Unknown Completed [facility] PPD (TB) Unknown Completed [facility] Influenza Virus Vaccine Quad IM 3+ YRS Unknown Completed [facility] TDAP Unknown Completed [facility] HPV9 Unknown Completed [facility] HPV9 Unknown Completed [facility] Influenza Virus Vaccine Quad IM, Preserv and ABX Free 6 MO-64 YRS (FLUCELVAX) Unknown Completed [facility] DTaP, Unspecified Formulation Unknown Completed [facility] DTaP, Unspecified Formulation Unknown Completed [facility] DTaP, Unspecified Formulation Unknown Completed [facility] DTaP, Unspecified Formulation Unknown Completed [facility] Influenza Virus Vaccine - Whole Unknown Completed [facility] Haemophilus influenzae type b vaccine, conjugate unspecified formulation Unknown Completed [facility] Haemophilus influenzae type b vaccine, conjugate unspecified formulation Unknown Completed [facility] Haemophilus influenzae type b vaccine, conjugate unspecified formulation Unknown Completed [facility] Hib-HbOC Unknown Completed [facility] Hib-HbOC Unknown Completed [facility] HPV Unknown Completed [facility] HPV Unknown Completed [facility] Meningococcal Polysaccharide (groups A, C, Y and W-135) conjugate vaccine (MCV4P) Unknown Completed [facility] Meningococcal Polysaccharide (groups A, C, Y and W-135) conjugate vaccine (MCV4P) Unknown Completed [facility] IPV Unknown Completed [facility] IPV Unknown Completed [facility] IPV Unknown Completed [facility] Poliovirus, Live, Oral, Trivalent Unknown Completed [facility] HPV9 Unknown Completed [facility] DTAP Unknown Completed [facility] DTAP Unknown Completed [facility] DTAP Unknown Completed [facility] DTAP Unknown Completed [facility] DTAP Unknown Completed [facility] HIB 4 Dose Schedule Unknown Completed [facility] HIB 4 Dose Schedule Unknown Completed [facility] HIB 4 Dose Schedule Unknown Completed [facility] Hep B, Adol or Pedi Dosage Unknown Completed [facility] Hep B, Adol or Pedi Dosage Unknown Completed [facility] Hep B, Adol or Pedi Dosage Unknown Completed [facility] Hep B, Adol or Pedi Dosage Unknown Completed [facility] Hep B, Adol or Pedi Dosage Unknown Completed [facility] Hep B, Adol or Pedi Dosage Unknown Completed [facility] Meningococcal Vaccine Unknown Completed [facility] MMR Unknown Completed [facility] MMR Unknown Completed [facility] Polio (IPV/OPV) Unknown Completed [facility] Polio (IPV/OPV) Unknown Completed [facility] Polio (IPV/OPV) Unknown Completed [facility] Polio (IPV/OPV) Unknown Completed [facility] Polio (IPV/OPV) Unknown Completed [facility] TDAP Unknown Completed [facility] Varicella (varivax)(chicken pox) Unknown Completed [facility] PPD (TB) Unknown Completed [facility] Influenza Virus Vaccine Quad IM 3+ YRS Unknown Completed [facility] TDAP Unknown Completed [facility] HPV9 Unknown Completed [facility] HPV9 Unknown Completed [facility] Influenza Virus Vaccine Quad IM, Preserv and ABX Free 6 MO-64 YRS (FLUCELVAX) Unknown Completed [facility] DTaP, Unspecified Formulation Unknown Completed [facility] DTaP, Unspecified Formulation Unknown Completed [facility] DTaP, Unspecified Formulation Unknown Completed [facility] DTaP, Unspecified Formulation Unknown Completed [facility] Influenza Virus Vaccine - Whole Unknown Completed [facility] Haemophilus influenzae type b vaccine, conjugate unspecified formulation Unknown Completed [facility] Haemophilus influenzae type b vaccine, conjugate unspecified formulation Unknown Completed [facility] Haemophilus influenzae type b vaccine, conjugate unspecified formulation Unknown Completed [facility] Hib-HbOC Unknown Completed [facility] Hib-HbOC Unknown Completed [facility] HPV Unknown Completed [facility] HPV Unknown Completed [facility] Meningococcal Polysaccharide (groups A, C, Y and W-135) conjugate vaccine (MCV4P) Unknown Completed [facility] Meningococcal Polysaccharide (groups A, C, Y and W-135) conjugate vaccine (MCV4P) Unknown Completed [facility] IPV Unknown Completed [facility] IPV Unknown Completed [facility] IPV Unknown Completed [facility] Poliovirus, Live, Oral, Trivalent Unknown Completed [facility] HPV9 Unknown Completed [facility] DTAP Unknown Completed [facility] DTAP Unknown [facility]pleted [facility] DTAP Unknown Completed [facility] DTAP Unknown Completed [facility] DTAP Unknown Completed [facility] HIB 4 Dose Schedule Unknown Completed [facility] HIB 4 Dose Schedule Unknown Completed [facility] HIB 4 Dose Schedule Unknown Completed [facility] Hep B, Adol or Pedi Dosage Unknown Completed [facility] Hep B, Adol or Pedi Dosage Unknown Completed [facility] Hep B, Adol or Pedi Dosage Unknown Completed [facility] Hep B, Adol or Pedi Dosage Unknown Completed [facility] Hep B, Adol or Pedi Dosage Unknown Completed [facility] Hep B, Adol or Pedi Dosage Unknown Completed [facility] Meningococcal Vaccine Unknown Completed [facility] MMR Unknown Completed [facility] MMR Unknown Completed [facility] Polio (IPV/OPV) Unknown Completed [facility] Polio (IPV/OPV) Unknown Completed [facility] Polio (IPV/OPV) Unknown Completed [facility] Polio (IPV/OPV) Unknown Completed [facility] Polio (IPV/OPV) Unknown Completed [facility] TDAP Unknown Completed [facility] Varicella (varivax)(chicken pox) Unknown Completed [facility] PPD (TB) Unknown Completed [facility] Influenza Virus Vaccine Quad IM 3+ YRS Unknown Completed [facility] TDAP Unknown Completed [facility] HPV9 Unknown Completed [facility] HPV9 Unknown Completed [facility] Influenza Virus Vaccine Quad IM, Preserv and ABX Free 6 MO-64 YRS (FLUCELVAX) Unknown Completed [facility] DTaP, Unspecified Formulation Unknown Completed [facility] DTaP, Unspecified Formulation Unknown Completed [facility] DTaP, Unspecified Formulation Unknown Completed [facility] DTaP, Unspecified Formulation Unknown Completed [facility] Influenza Virus Vaccine - Whole Unknown Completed [facility] Haemophilus influenzae type b vaccine, conjugate unspecified formulation Unknown Completed [facility] Haemophilus influenzae type b vaccine, conjugate unspecified formulation Unknown Completed [facility] Haemophilus influenzae type b vaccine, conjugate unspecified formulation Unknown Completed [facility] Hib-HbOC Unknown Completed [facility] Hib-HbOC Unknown Completed [facility] HPV Unknown Completed [facility] HPV Unknown Completed [facility] Meningococcal Polysaccharide (groups A, C, Y and W-135) conjugate vaccine (MCV4P) Unknown Completed [facility] Meningococcal Polysaccharide (groups A, C, Y and W-135) conjugate vaccine (MCV4P) Unknown Completed [facility] IPV Unknown Completed [facility] IPV Unknown Completed [facility] IPV Unknown Completed [facility] Poliovirus, Live, Oral, Trivalent Unknown Completed [facility] HPV9 Unknown Completed [facility] DTAP Unknown Completed [facility] DTAP Unknown [facility]pleted [facility] DTAP Unknown [facility]pleted [facility] DTAP Unknown Completed [facility] DTAP Unknown Completed [facility] HIB 4 Dose Schedule Unknown Completed [facility] HIB 4 Dose Schedule Unknown Completed [facility] HIB 4 Dose Schedule Unknown Completed [facility] Hep B, Adol or Pedi Dosage Unknown Completed [facility] Hep B, Adol or Pedi Dosage Unknown Completed [facility] Hep B, Adol or Pedi Dosage Unknown Completed [facility] Hep B, Adol or Pedi Dosage Unknown Completed [facility] Hep B, Adol or Pedi Dosage Unknown Completed [facility] Hep B, Adol or Pedi Dosage Unknown Completed [facility] Meningococcal Vaccine Unknown Completed [facility] MMR Unknown Completed [facility] MMR Unknown Completed [facility] Polio (IPV/OPV) [facility]) [facility] TDAP Unknown Completed [facility] Varicella (varivax)(chicken pox) Unknown Completed [facility] PPD (TB) Unknown Completed [facility] Influenza Virus Vaccine Quad IM 3+ YRS Unknown Completed [facility] TDAP Unknown Completed [facility] HPV9 Unknown Completed [facility] HPV9 Unknown Completed [facility] Influenza Virus Vaccine Quad IM, Preserv and ABX Free 6 MO-64 YRS (FLUCELVAX) Unknown Completed [facility] DTaP, Unspecified Formulation Unknown Completed [facility] DTaP, Unspecified Formulation Unknown Completed [facility] DTaP, Unspecified Formulation Unknown Completed [facility] DTaP, Unspecified Formulation Unknown Completed [facility] Influenza Virus Vaccine - Whole Unknown Completed [facility] Haemophilus influenzae type b vaccine, conjugate unspecified formulation Unknown Completed [facility] Haemophilus influenzae type b vaccine, conjugate unspecified formulation Unknown Completed [facility] Haemophilus influenzae type b vaccine, conjugate unspecified formulation Unknown Completed [facility] Hib-HbOC Unknown Completed [facility] Hib-HbOC Unknown Completed [facility] HPV Unknown Completed [facility] HPV Unknown Completed [facility] Meningococcal Polysaccharide (groups A, C, Y and W-135) conjugate vaccine (MCV4P) Unknown Completed [facility] Meningococcal Polysaccharide (groups A, C, Y and W-135) conjugate vaccine (MCV4P) Unknown Completed [facility] IPV Unknown Completed [facility] IPV Unknown Completed [facility] IPV Unknown Completed [facility] Poliovirus, Live, Oral, Trivalent Unknown Completed [facility] HPV9 Unknown Completed [facility] DTAP Unknown Completed [facility] DTAP Unknown [facility]pleted [facility] DTAP Unknown [facility]pleted [facility] DTAP Unknown Completed [facility] DTAP Unknown Completed [facility] HIB 4 Dose Schedule Unknown Completed [facility] HIB 4 Dose Schedule Unknown Completed [facility] HIB 4 Dose Schedule Unknown Completed [facility] Hep B, Adol or Pedi Dosage Unknown Completed [facility] Hep B, Adol or Pedi Dosage Unknown Completed [facility] Hep B, Adol or Pedi Dosage Unknown Completed [facility] Hep B, Adol or Pedi Dosage Unknown Completed [facility] Hep B, Adol or Pedi Dosage Unknown Completed [facility] Hep B, Adol or Pedi Dosage Unknown Completed [facility] Meningococcal Vaccine Unknown Completed [facility] MMR Unknown Completed [facility] MMR Unknown Completed [facility] Polio (IPV/OPV) Unknown Completed [facility] Polio (IPV/OPV[facility] Unknown Completed [facility] Polio (IPV/OPV) Unknown Completed [facility] Polio (IPV/OPV) Unknown Completed [facility] Polio (IPV/OPV) Unknown Completed [facility] TDAP Unknown Completed [facility] Varicella (varivax)(chicken pox) Unknown Completed [facility] PPD (TB) Unknown Completed [facility] Influenza Virus Vaccine Quad IM 3+ YRS Unknown Completed [facility] TDAP Unknown Completed [facility] HPV9 Unknown Completed [facility] HPV9 Unknown Completed [facility] Influenza Virus Vaccine Quad IM, Preserv and ABX Free 6 MO-64 YRS (FLUCELVAX) Unknown Completed [facility] DTaP, Unspecified Formulation Unknown Completed [facility] DTaP, Unspecified Formulation Unknown Completed [facility] DTaP, Unspecified Formulation Unknown Completed [facility] DTaP, Unspecified Formulation Unknown Completed [facility] Influenza Virus Vaccine - Whole Unknown Completed [facility] Haemophilus influenzae type b vaccine, conjugate unspecified formulation Unknown Completed [facility] Haemophilus influenzae type b vaccine, conjugate unspecified formulation Unknown Completed [facility] [place] Haemophilus influenzae type b vaccine, conjugate unspecified formulation Unknown Completed [facility] [place] Hib-HbOC Unknown Completed [facility] [place] Hib-HbOC Unknown Completed [facility] [place] HPV Unknown Completed [facility] [place] HPV Unknown Completed [facility] [place] Meningococcal Polysaccharide (groups A, C, Y and W-135) conjugate vaccine (MCV4P) Unknown Completed [facility] Meningococcal Polysaccharide (groups A, C, Y and W-135) conjugate vaccine (MCV4P) Unknown Completed [facility] IPV Unknown Completed [facility] [place] IPV Unknown Completed [facility] [place] IPV Unknown Completed [facility] [place] Poliovirus, Live, Oral, Trivalent Unknown Completed [facility] HPV9 Unknown Completed [facility] [place] DTAP Unknown Completed [facility] [place] DTAP Unknown Completed [facility] [place] DTAP Unknown Completed [facility] [place] DTAP Unknown Completed [facility] [place] DTAP Unknown Completed [facility] [place] HIB 4 Dose Schedule Unknown Completed [facility] [place] HIB 4 Dose Schedule Unknown Completed [facility] [place] HIB 4 Dose Schedule Unknown Completed [facility] [place] Hep B, Adol or Pedi Dosage Unknown Completed [facility] [place] Hep B, Adol or Pedi Dosage Unknown Completed [facility] [place] Hep B, Adol or Pedi Dosage Unknown Completed [facility] [place] Hep B, Adol or Pedi Dosage Unknown Completed [facility] [place] Hep B, Adol or Pedi Dosage Unknown Completed [facility] [place] Hep B, Adol or Pedi Dosage Unknown Completed [facility] [place] Meningococcal Vaccine Unknown Completed [facility] [place] MMR Unknown Completed [facility] [place] MMR Unknown Completed [facility] [place] Polio (IPV/OPV) Unknown [facility] Polio (IPV/OPV) Unknown [facility] Polio (IPV/OPV) Unknown Completed [facility] Polio (IPV/OPV) Unknown Completed [facility] Polio (IPV/OPV) Unknown [facility] TDAP Unknown Completed [facility] [place] Varicella (varivax)(chicken pox) Unknown Completed [facility] [place] PPD (TB) Unknown Completed [facility] [place] Influenza Virus Vaccine Quad IM 3+ YRS Unknown Completed [facility] [place] TDAP Unknown Completed [facility] [place] HPV9 Unknown Completed [facility] [place] HPV9 Unknown Completed [facility] [place] Influenza Virus Vaccine Quad IM, Preserv and ABX Free 6 MO-64 YRS (FLUCELVAX) Unknown Completed [facility] [place] DTaP, Unspecified Formulation Unknown Completed [facility] [place] DTaP, Unspecified Formulation Unknown Completed [facility] [place] DTaP, Unspecified Formulation Unknown Completed [facility] [place] DTaP, Unspecified Formulation Unknown Completed [facility] [place] Influenza Virus Vaccine - Whole Unknown Completed [facility] Haemophilus influenzae type b vaccine, conjugate unspecified formulation Unknown Completed [facility] [place] Haemophilus influenzae type b vaccine, conjugate unspecified formulation Unknown Completed [facility] [place] Haemophilus influenzae type b vaccine, conjugate unspecified formulation Unknown Completed [facility] [place] Hib-HbOC Unknown Completed [facility] [place] Hib-HbOC Unknown Completed [facility] [place] HPV Unknown Completed [facility] [place] HPV Unknown Completed [facility] [place] Meningococcal Polysaccharide (groups A, C, Y and W-135) conjugate vaccine (MCV4P) Unknown Completed [facility] Meningococcal Polysaccharide (groups A, C, Y and W-135) conjugate vaccine (MCV4P) Unknown Completed [facility] IPV Unknown Completed [facility] [place] IPV Unknown Completed [facility] [place] IPV Unknown Completed [facility] [place] Poliovirus, Live, Oral, Trivalent Unknown Completed [facility] HPV9 Unknown Completed [facility] [place] DTAP Unknown Completed [facility] [place] DTAP Unknown Completed [facility] [place] DTAP Unknown Completed [facility] [place] DTAP Unknown Completed [facility] [place] DTAP Unknown Completed [facility] [place] HIB 4 Dose Schedule Unknown Completed [facility] [place] HIB 4 Dose Schedule Unknown Completed [facility] [place] HIB 4 Dose Schedule Unknown Completed [facility] [place] Hep B, Adol or Pedi Dosage Unknown Completed [facility] [place] Hep B, Adol or Pedi Dosage Unknown Completed [facility] [place] Hep B, Adol or Pedi Dosage Unknown Completed [facility] [place] Hep B, Adol or Pedi Dosage Unknown Completed [facility] [place] Hep B, Adol or Pedi Dosage Unknown Completed [facility] [place] Hep B, Adol or Pedi Dosage Unknown Completed [facility] [place] Meningococcal Vaccine Unknown Completed [facility] [place] MMR Unknown Completed [facility] [place] MMR Unknown Completed [facility] [place] Polio (IPV/OPV) [facility]) [facility]) [facility] ([facility]V) Unknown Completed [facility] TDAP Unknown Completed [facility] [place] Varicella (varivax)(chicken pox) Unknown Completed [facility] [place] PPD (TB) Unknown Completed [facility] [place] Influenza Virus Vaccine Quad IM 3+ YRS Unknown Completed [facility] [place] TDAP Unknown Completed [facility] [place] HPV9 Unknown Completed [facility] [place] HPV9 Unknown Completed [facility] [place] Influenza Virus Vaccine Quad IM, Preserv and ABX Free 6 MO-64 YRS (FLUCELVAX) Unknown Completed [facility] [place] DTaP, Unspecified Formulation Unknown Completed [facility] [place] DTaP, Unspecified Formulation Unknown Completed [facility] [place] DTaP, Unspecified Formulation Unknown Completed [facility] [place] DTaP, Unspecified Formulation Unknown Completed [facility] [place] Influenza Virus Vaccine - Whole Unknown Completed [facility] Haemophilus influenzae type b vaccine, conjugate unspecified formulation Unknown Completed [facility] [place] Haemophilus influenzae type b vaccine, conjugate unspecified formulation Unknown Completed [facility] [place] Haemophilus influenzae type b vaccine, conjugate unspecified formulation Unknown Completed [facility] [place] Hib-HbOC Unknown Completed [facility] [place] Hib-HbOC Unknown Completed [facility] [place] HPV Unknown Completed [facility] [place] HPV Unknown Completed [facility] [place] Meningococcal Polysaccharide (groups A, C, Y and W-135) conjugate vaccine (MCV4P) Unknown Completed [facility] Meningococcal Polysaccharide (groups A, C, Y and W-135) conjugate vaccine (MCV4P) Unknown Completed [facility] IPV Unknown Completed [facility] IPV Unknown Completed [facility] [place] IPV Unknown Completed [facility] [place] Poliovirus, Live, Oral, Trivalent Unknown Completed [facility] HPV9 Unknown Completed [facility] [place] Vital Signs Vital Name Observation Time Observation Value Comments S ource Systolic blood pressure 2023-03-19 20:51:00 127 mm[Hg] [facility] Diastolic blood pressure 2023-03-19 20:51:00 69 mm[Hg] [facility] Heart rate 2023-03-19 20:51:00 64 /min [facility] temperature 2023-03-19 20:51:00 36.39 Ayana [facility] [place] Body height 2023-03-19 20:51:[address] [facility] Body weight 2023-03-19 20:51:00 68.765 kg [facility] BMI 2023-03-19 20:51:00 27.73 kg/m2 [facility] Systolic blood pressure 2022-12-24 18:20:00 119 mm[Hg] [facility] Diastolic blood pressure 2022-12-24 18:20:00 80 mm[Hg] [facility] Heart rate 2022-12-24 18:20:00 67 /min [facility] Respiratory rate 2022-12-24 18:20:00 18 /min [facility] [place] Body height 2022-12-24 18:20:00 157.5 cm [facility] Body weight 2022-12-24 18:20:00 68.493 kg [facility] BMI 2022-12-24 18:20:00 27.62 kg/m2 [facility] Systolic blood pressure 2022-10-16 18:08:00 116 mm[Hg] [facility] Diastolic blood pressure 2022-10-16 18:08:00 76 mm[Hg] [facility] Heart rate 2022-10-16 18:08:00 72 /min [facility] Body temperature 2022-10-16 18:08:00 36.39 Ayana [facility] [place] Respiratory rate 2022-10-16 18:08:00 16 /min [facility] [place] Body height 2022-10-16 18:08:00 157.5 cm [facility] Body weight 2022-10-16 18:08:00 70.897 kg [facility] BMI 2022-10-16 18:08:00 28.59 kg/m2 [facility] Systolic blood pressure 2022-09-25 00:16:00 112 mm[Hg] [facility] Diastolic blood pressure 2022-09-25 00:16:00 75 mm[Hg] [facility] Heart rate 2022-09-25 00:16:00 84 /min [facility] Respiratory rate 2022-09-25 00:16:00 18 /min [facility] [place] Oxygen saturation in Arterial blood by Pulse oximetry 2022-09-25 00:16:00 99 /min [facility] Body temperature 2022-09-24 20:46:00 37.17 Ayana [facility] [place] Body weight 2022-09-24 20:46:00 70.761 kg [facility] BMI 2022-09-24 20:46:00 28.53 kg/m2 [facility] Systolic blood pressure 2022-09-16 03:00:00 98 mm[Hg] [facility] Diastolic blood pressure 2022-09-16 03:00:00 67 mm[Hg] [facility] Heart rate 2022-09-16 03:00:00 56 /min [facility] Respiratory rate 2022-09-16 03:00:00 16 /min [facility] [place] Oxygen saturation in Arterial blood by Pulse oximetry 2022-09-16 03:00:00 97 /min [facility] Body temperature 2022-09-16 02:12:00 36.61 Ayana [facility] [place] Body weight 2022-09-15 21:04:00 70.761 kg [facility] BMI 2022-09-15 21:04:00 28.53 kg/m2 [facility] Systolic blood pressure 2022-09-05 21:04:00 115 mm[Hg] [facility] Diastolic blood pressure 2022-09-05 21:04:00 72 mm[Hg] [facility] Heart rate 2022-09-05 21:04:00 58 /min [facility] Body temperature 2022-09-05 21:04:00 35.83 Ayana [facility] [place] Respiratory rate 2022-09-05 21:04:00 18 /min [facility] Body height 2022-09-05 21:04:00 157.5 cm [facility] Body weight 2022-09-05 21:04:00 70.897 kg [facility] BMI 2022-09-05 21:04:00 28.59 kg/m2 [facility] Oxygen saturation in Arterial blood by Pulse oximetry 2022-09-05 21:04:00 98 /min [facility] Systolic blood pressure 2022-06-05 17:35:00 131 mm[Hg] [facility] Diastolic blood pressure 2022-06-05 17:35:00 79 mm[Hg] [facility] Heart rate 2022-06-05 17:35:00 69 /min [facility] Respiratory rate 2022-06-05 17:35:00 18 /min [facility] [place] Body height 2022-06-05 17:35:00 157.5 cm [facility] Body weight 2022-06-05 17:35:00 73.483 kg [facility] BMI 2022-06-05 17:35:00 29.63 kg/m2 [facility] Systolic blood pressure 2022-04-17 21:20:00 113 mm[Hg] [facility] Diastolic blood pressure 2022-04-17 21:20:00 73 mm[Hg] [facility] Heart rate 2022-04-17 21:20:00 71 /min [facility] Body temperature 2022-04-17 21:20:00 37 Ayana [facility] [place] Respiratory rate 2022-04-17 21:20:00 18 /min [facility] [place] Body height 2022-04-17 21:20:00 157.5 cm [facility] Body weight 2022-04-17 21:20:00 73.029 kg [facility] BMI 2022-04-17 21:20:00 29.45 kg/m2 [facility] Systolic blood pressure 2022-03-20 17:12:00 106 mm[Hg] [facility] Diastolic blood pressure 2022-03-20 17:12:00 67 mm[Hg] [facility] Heart rate 2022-03-20 17:12:00 61 /min [facility] Body temperature 2022-03-20 17:12:00 36.94 Ayana [facility] [place] Respiratory rate 2022-03-20 17:12:00 16 /min [facility] [place] Body height 2022-03-20 17:12:00 157.5 cm [facility] Body weight 2022-03-20 17:12:00 72.893 kg [facility] BMI 2022-03-20 17:12:00 29.39 kg/m2 [facility] Oxygen saturation in Arterial blood by Pulse oximetry 2022-03-20 17:12:00 99 /min [facility] Systolic blood pressure 2022-02-04 21:38:00 122 mm[Hg] [facility] Diastolic blood pressure 2022-02-04 21:38:00 74 mm[Hg] [facility] Heart rate 2022-02-04 21:38:00 63 /min [facility] Body temperature 2022-02-04 21:38:00 37.06 Ayana [facility] [place] Respiratory rate 2022-02-04 21:38:00 18 /min [facility] [place] Body height 2022-02-04 21:38:00 157.5 cm [facility] Body weight 2022-02-04 21:38:00 69.854 kg [facility] BMI 2022-02-04 21:38:00 28.17 kg/m2 [facility] Systolic blood pressure 2021-10-18 20:03:00 125 mm[Hg] [facility] Diastolic blood pressure 2021-10-18 20:03:00 82 mm[Hg] [facility] Heart rate 2021-10-18 20:03:00 77 /min [facility] Respiratory rate 2021-10-18 20:03:00 18 /min [facility] [place] Body height 2021-10-18 20:03:00 154.9 cm [facility] Body weight 2021-10-18 20:03:00 68.493 kg [facility] BMI 2021-10-18 20:03:00 28.53 kg/m2 [facility] Oxygen saturation in Arterial blood by Pulse oximetry 2021-10-18 20:03:00 98 /min [facility] Procedures Procedure Date / Time Performed Performing Clinician Source US PELVIS COMPLETE WITH TRANSVAGINAL 2023-03-03 17:11:11 Amber Batres [facility] [place] CONSENT/REFUSAL FOR DIAGNOSI S AND TREATMENT 2023-03-03 16:05:13 Doctor [place] [facility] [place] ASSIGNMENT OF BENEFITS 2022-11-14 15:59:15 Doctor Unassigned, [place] [facility] [place] CONSENT/REFUSAL FOR DIAGNOSI S AND TREATMENT 2022-11-14 15:57:21 Doctor Unassigned, [place] [facility] [place] POCT TEST 2022-10-16 21:07:00 Javier Puente [facility] [place] POCT TEST 2022-09-24 23:16:00 Eli Yuen [facility] [place] COMP. METABOLIC PANEL (70595) 2022-09-24 21:53:00 Eli Yuen [facility] [place] CBC WITH DIFF 2022-09-24 21:53:00 Eli Yuen [facility] [place] URINALYSIS 2022-09-24 21:53:00 Eli Yuen [facility] [place] CONSENT/REFUSAL FOR DIAGNOSI S AND TREATMENT 2022-09-24 20:31:46 Doctor Unassigned[place] [facility] [place] POCT GLUCOSE (AUTOMATED) 2022-09-16 02:16:00 Nitin Nogueira [facility] [place] US OVARY TORSION 2022-09-16 01:17:39 Nitin Nogueira [facility] [place] CT ABDOMEN PELVIS W CONTRAST 2022-09-15 23:06:00 Nitin Nogueira [facility] [place] URINE DRUG (IMMUNOASSAY) - COMPREHENSIVE DRUG SCREEN 2022-09-15 21:19:00 Nitin Nogueira [facility] [place] URINALYSIS 2022-09-15 21:19:00 Nitin Nogueira [facility] [place] LIPASE 2022-09-15 21:18:00 Nitin Nogueira [facility] [place] TEST, SERUM 2022-09-15 21:18:00 Nitni Nogueira [facility] [place] COMP. METABOLIC PANEL ([id number]) 2022-09-15 21:18:00 Nitin Nogueira [facility] [place] ETHANOL 2022-09-15 21:18:00 Nitin Nogueira [facility] [place] CBC WITH DIFF 2022-09-15 21:18:00 Nitin Nogueira [facility] [place] CONSENT/REFUSAL FOR DIAGNOSI S AND TREATMENT 2022-09-15 21:03:19 Doctor Unassigned, [place] [facility] [place] FL HYSTEROSALPINGOGRAM 2022-05-24 15:30:00 Amber Batres [facility] [place] ASSIGNMENT OF BENEFITS 2022-05-06 19:16:43 Doctor Unassigned, [place] [facility] [place] GARDASIL 9 (HPV 9V) VACCINE 2022-04-17 21:29:05 Amber Batres [facility] PELVIS COMPLETE WITH TRANSVAGINAL 2022-03-12 21:56:35 Amber Batres [facility] [place] FLU VACC (), 6 MO-6 4 YRS, .5ML, IM, QUAD (FLUCELVAX) 2022-02-04 22:10:49 Gisel [facility] GC & CHLAMYDIA AMPLIFIED ASSAY 2022-02-04 21:50:00 Gisel [facility] TRICHOMONAS AMPLIFIED ASSAY 2022-02-04 21:50:00 [facility] [place] PAP SMEAR-LIQUID BASED-CP 2022-02-04 21:50:00 Gisel [facility] GARDASIL 9 (HPV 9V) VACCINE 2021-12-19 19:40:47 Gisel [facility] GARDASIL 9 (HPV 9V) VACCINE 2021-10-18 20:45:50 Nadine Campos [facility] [place] Encounters Start Date/Time End Date/Time Encounter Type Admission Type Attending Clinicians Care Facility Care Department Encounter ID Source 2023-03-19 14:45:00 2023-03-19 15:15:00 [facility] [id number] 350.1.13.10 4.2.7.2.686 [id number] [facility] 2023-03-19 14:45:00 2023-03-19 14:45:00 Outpatient R FRANSISCO HOWARD [facility] [id number] [facility] 2023-03-11 00:00:00 2023-03-11 00:00:00 Patient Secure Msg Doctor Unassigned, [place] [facility] 1.20.114 350.1.13.10 4.2.7.2.686 [id number] [facility] 2023-03-03 10:00:00 2023-03-03 23:59:00 [facility] [id number] [facility] 2023-03-03 10:00:00 2023-03-03 23:59:00 Hospital Encounter Amber Batres [facility] 1.0.114 350.1.13.10 4.2.7.2.686 [id number] [facility] 2023-03-03 00:00:00 2023-03-03 00:00:00 Orders Only Doctor Unassigned, [place] [facility] 1..114 350.1.13.10 4.2.7.2.686 [id number] [facility] 2022-12-24 13:00:00 2022-12-24 13:30:53 Outpatient R GISEL AMBER BROWER [facility] [id number] [facility] 2022-12-24 13:00:00 2022-12-24 13:30:53 Office Visit Amber Batres [facility] 1..114 350.1.13.10 4.2.7.2.686 [id number] [facility] 2022-12-24 00:00:00 2022-12-24 00:00:00 Telephone Amber Batres [facility] 1..114 350.1.13.10 4.2.7.2.686 [id number] [facility] 2022-12-17 11:30:00 2022-12-17 11:30:00 Outpatient R AMBER BATRES CHERYAL [facility] [id number] [facility] 2022-11-14 10:57:25 2022-11-14 23:59:00 Outpatient R JAVIER PUNETE [facility] [id number] [facility] 2022-11-14 10:57:25 2022-11-14 23:59:00 Hospital Encounter Javier Puente [facility] 1.840.114 350.1.13.10 4.2.7.2.686 [id number] [facility] 2022-10-16 13:00:00 2022-10-16 14:35:53 Outpatient R JAVIER PUENTE [facility] [id number] [facility] 2022-10-16 13:00:00 2022-10-16 14:35:53 Office Visit Provider, [facility] Javier Becker [facility] 1.840.114 350.1.13.10 4.2.7.2.686 [id number] [facility] 2022-10-08 10:30:00 2022-10-08 10:30:00 Outpatient R FRANSISCO HOWARD [facility] [id number] [facility] 2022-10-08 00:00:00 2022-10-08 00:00:00 Patient Secure Amber Piper [facility] 1.840.114 350.1.13.10 4.2.7.2.686 [id number] [facility] 2022-09-24 15:51:00 2022-09-24 19:18:00 Emergency X ELI YUEN [facility] ERT [id number] [facility] 2022-09-24 15:51:00 2022-09-24 19:18:00 Emergency Eli Yuen [facility] 1.2.840.114 350.1.13.10 4.2.7.2.686 [id number] [facility] 2022-09-20 00:00:00 2022-09-20 00:00:00 Patient Secure Msg Gisel [facility] 1.2.840.114 350.1.13.10 4.2.7.2.686 [id number] [facility] 2022-09-17 00:00:00 2022-09-17 00:00:00 Telephone [facility] 1.2.840.114 350.1.13.10 4.2.7.2.686 [id number] [facility] 2022-09-15 16:05:00 2022-09-15 22:07:00 Emergency X KIRSTEN JUNG [facility] ERT [id number] [facility] 2022-09-15 16:05:00 2022-09-15 22:07:00 Emergency MarkosNitin sung Phillip [facility] [id number] 350.1.13.10 4.2.7.2.686 [id number] [facility] 2022-09-13 00:00:00 2022-09-13 00:00:00 [facility] [facility] 1.2840.114 350.1.13.10 4.2.7.2.686 [id number] 134 [id number] [facility] 2022-09-05 16:00:00 2022-09-05 17:06:00 Outpatient JENNIFER PIMENTEL GABRIELA [facility] [id number] [facility] 2022-09-05 16:00:00 2022-09-05 17:06:00 Office Visit Jennifer Chen [facility] 1..114 350.1.13.10 4.2.7.2.686 [id number] [facility] 2022-06-14 00:00:00 2022-06-14 00:00:00 Patient Secure Msg Doctor Unassigned, [place] [facility] 1..114 350.1.13.10 4.2.7.2.686 [id number] [facility] 2022-06-05 11:30:00 2022-06-05 11:47:02 Office Visit Amber Batres [facility] 1.114 350.1.13.10 4.2.7.2.686 [id number] [facility] 2022-06-05 11:30:00 2022-06-05 11:47:02 Outpatient R AMBER BATRES CHERYAL [facility] [id number] [facility] 2022-05-24 08:08:38 2022-05-24 23:59:00 Outpatient R AMBER BATRES CHERYAL [facility] [id number] [facility] 2022-05-24 08:08:38 2022-05-24 23:59:00 [facility] 1..114 350.1.13.10 4.2.7.2.686 [id number] [facility] 2022-05-24 08:00:00 2022-05-24 08:01:24 Manager Hydraulic Visit Lab, [facility] Sanam Robledo [facility] 1..114 350.1.13.10 4.2.7.2.686 [id number] [facility] 2022-05-06 13:17:33 2022-05-06 23:59:00 Hospital Encounter [facility] 1.2.840.114 350.1.13.10 4.2.7.2.686 [id number] [facility] 2022-05-06 00:00:00 2022-05-06 23:59:00 Outpatient R AMBER BATRES CHERYAL [facility] [id number] [facility] 2022-05-06 00:00:00 2022-05-06 00:00:00 Orders Only Doctor Unassigned, [place] [facility] 1.2840.114 350.1.13.10 4.2.7.2.686 [id number] [facility] 2022-04-17 15:00:00 2022-04-17 15:15:00 [facility] 1.2840.114 350.1.13.10 4.2.7.2.686 [id number] [facility] 2022-04-17 15:00:00 2022-04-17 15:00:00 Outpatient R AMBER BATRES CHERYAL [facility] [id number] [facility] 2022-03-20 11:00:00 2022-03-20 11:27:24 Outpatient R AMBER BATRES CHERYAL [facility] [id number] [facility] 2022-03-20 11:00:00 2022-03-20 11:27:24 [facility] 1.2840.114 350.1.13.10 4.2.7.2.686 [id number] 134 [id number] [facility] 2022-03-12 15:12:10 2022-03-12 23:59:00 Outpatient R AMBER BATRES CHERYAL [facility] [id number] [facility] 2022-03-12 15:12:10 2022-03-12 23:59:00 Hospital Encounter Amber Batres [facility] 1.2840.114 350.1.13.10 4.2.7.2.686 [id number] [facility] 2022-02-04 15:30:00 2022-02-04 15:54:47 Outpatient R AMBER BATRES CHERYAL [facility] [id number] [facility] 2022-02-04 15:30:00 2022-02-04 15:54:47 Office Visit Evycecilia [facility] 1..114 350.1.13.10 4.2.7.2.686 [id number] 134 [id number] [facility] 2022-02-04 00:00:00 2022-02-04 00:00:00 Letter (Out) Gisel [facility] 1..114 350.1.13.10 4.2.7.2.686 [id number] 134 [id number] [facility] 2021-12-19 15:00:00 2021-12-19 15:00:00 Outpatient R AMBER BATRES CHERYAL [facility] [id number] [facility] 2021-12-19 15:00:00 2021-12-19 15:00:00 [facility] 1..114 350.1.13.10 4.2.7.2.686 [id number] [facility] 2021-10-18 15:00:00 2021-10-18 15:42:51 Outpatient R NADINE CAMPOS [facility] [id number] [facility] 2021-10-18 15:00:00 2021-10-18 15:42:51 Office Visit Nadine Campos [facility] 1..840.114 350.1.13.10 4.2.7.2.686 [id number] [facility] 2021-03-20 15:00:00 2021-03-20 15:00:00 Outpatient R NADINE CAMPOS [facility] [id number] [facility] 2021-02-16 14:03:09 2021-02-16 14:59:09 Office Visit Nadine Campos [facility] 1..840.114 350.1.13.10 4.2.7.2.686 [id number] 134 [id number] [facility] 2021-02-16 14:00:00 2021-02-16 14:59:09 Outpatient R NADINE CAMPOS [facility] [id number] [facility] 2021-02-16 14:00:00 2021-02-16 14:00:00 Outpatient R NADINE CAMPOS [facility] [id number] [facility] 2021-02-16 14:00:00 2021-02-16 14:00:00 Outpatient R NADINE CAMPOS [facility] [id number] [facility] 2021-02-16 00:00:00 2021-02-16 00:00:00 Letter (Out) Nadine Campos [facility] 1..840.114 350.1.13.10 4.2.7.2.686 [id number] [facility] 2021-02-14 00:00:00 2021-02-14 00:00:00 Telephone Fish, Nadine [facility] 1.2.840.114 350.1.13.10 4.2.7.2.686 [id number] 134 [id number] [facility] 2021-02-01 10:34:08 2021-02-01 11:33:31 Office Visit Nadine Campos [facility] 1.2.840.114 350.1.13.10 4.2.7.2.686 [id number] 134 [id number] [facility] 2021-02-01 10:30:00 2021-02-01 11:33:31 Outpatient R NADINE CAMPOS [facility] [id number] [facility] 2021-02-01 10:30:00 2021-02-01 11:33:31 Outpatient R NADINE CAMPOS [facility] [id number] [facility] 2020-03-22 14:00:00 2020-03-22 14:00:00 Outpatient R [facility] [id number] [facility] 2020-03-16 15:00:00 2020-03-16 15:00:00 Outpatient R NADINE CAMPOS [facility] [id number] [facility] 2019-10-25 14:09:00 2019-10-25 14:09:00 Outpatient TALI Ladan Rodarte [facility] [id number] 57 [facility] Results Test Description Test Time Test Comments Results Result Co mments Source [facility] [id number] 21:07:00* Test Item Value Reference Range Interpretation Comme nts POCT PREG (test code = 1605) Negative On board controls acceptable with C Line (test code = 3574) Yes POCT PREG LOT # (test code = 3575) POCT PREG TEST DATE ( test code = 3576) Lab Interpretation (test cod e = 07774-7) Normal [facility] [id number] 23:16:00* Test Item Value Reference Range Interpretation Comme nts POCT PREG (test code = 1605) Negative On board controls acceptable with C Line (test code = 3574) Yes POCT PREG LOT # (test code = 2159) [id number] POCT PREG TEST DATE ( test code = 3572) 03/12/2024 Lab Interpretation (test cod e = 57239-3) Normal [facility]. METABOLIC PANEL ([id number])2022-09-24 22:48:08* Test Item Value Reference Range Interpretation Comme nts NA (test code = 7076228645) 140 mmol/L 135-145 K (test code = 6242022069) 4.1 mmol/L 3.5-5.0 CL (test code = 6138161014) 104 mmol/L 98-108 CO2 TOTAL (test code = 6839488964) 24 mmol/L 23-31 AGAP (test code = 7055540027) 12 2-16 BUN (test code = 6057382532) 12 mg/dL 7-23 GLUCOSE (test code = 2246598507) 87 mg/dL 70-110 CREATININE (test code = 3293197682) 0.73 mg/dL 0.50-1.04 TOTAL BILI (test code = 5361701428) 1.9 mg/dL 0.1-1.1 H CALCIUM (test code = 0795738622) 9.0 mg/dL 8.6-10.6 T PROTEIN (test code = 8391541066) 7.4 g/dL 6.3-8.2 ALBUMIN (test code = 0872190214) 4.6 g/dL 3.5-5.0 ALK PHOS (test code = 6446142396) 58 U/L 34-122 ALTv (test code = 1742-6) 15 U/L 5-35 AST(SGOT) (test code = 4252358795) 23 U/L 13-40 eGFR (test code = 9437128951) 97.1 mL/min/1.73m2 GRABIEL (test code = GRABIEL) Association of Glomerular Filtration Rate (GFR) and Staging of Kidney Disease* + --+ --+ ------+| GFR (mL/min/1.73 m2) ?| With Kidney Damage ?| ?Without Kidney Damage+ --------+ --------+ +| ?>90 ?| ?Stage one ?| ? Normal ?+ ---+ ---+ -------+| ?60-89 ?| ?Stage two ?| ? Decreased GFR ? + --+ --+ ------+| ?30-59 ?| ?Stage three ?| ? Stage three ? + --+ --+ ------+| ?15-29 ?| ?Stage four ? | ? Stage four ?+ ---+ ---+ -------+| ?<15 (or dialysis) ? ?| ?Stage five ? | ? Stage five ?+ ---+ ---+ -------+ *Each stage assumes the associated GFR level has been in effect for at least three months. ?Stages 1 to 5, with or without kidney disease, indicate chronic kidney disease. Notes: Determination of stages one and two (with eGFR >59mL/min/1.73 m2) requires estimation of kidney damage for at least three months as defined by structural or functional abnormalities of the kidney, manifested by either:Pathological abnormalities or Markers of kidney damage (including abnormalities in the composition of the blood or urine or abnormalities in imaging tests). Lab Interpretation (test code = 64810-0) Abnormal [facility] WITH [id number] 22:11:23* Test Item Value Reference Range Interpretation Comme nts WBC (test code = 6690-2) 6.89 See_Comment [[employer]] The system which generated this result transmitted reference range: 4.30 - 11.10 10*3/?L. The reference range was not used to interpret this result as normal/abnormal. RBC (test code = 789-8) 4.36 See_Comment [[employer]] The system which generated this result transmitted reference range: 3.93 - 5.25 10*6/?L. The reference range was not used to interpret this result as normal/abnormal. HGB (test code = 718-7) 13.9 g/dL 11.6-15.0 HCT (test code = 4544-3) 39.3 % 35.7-45.2 MCV (test code = 787-2) 90.1 fL 80.6-95.5 MCH (test code = 785-6) 31.9 pg 25.9-32.8 MCHC (test code = 786-4) 35.4 g/dL 31.6-35.1 H RDW-SD (test code = 42631-7) 39.6 fL 39.0-49.9 RDW-CV (test code = 788-0) 12.1 % 12.0-15.5 PLT (test code = 777-3) 227 See_Comment [Automated messa ge] The system which generated this result transmitted reference range: 166 - 358 10*3/?L. The reference range was not used to interpret this result as normal/abnormal. MPV (test code = 20984-7) 10.4 fL 9.5-12.9 NRBC/100 WBC (test code = 9782005263) 0.0 See_Comment [Automated IPG ssage] The system which generated this result transmitted reference range: 0.0 - 10.0 /100 WBCs. The reference range was not used to interpret this result as normal/abnormal. NRBC x10^3 (test code = 5882393017) See_Comment [Automated messa ge] The system which generated this result transmitted reference range: 10*3/?L. The reference range was not used to interpret this result as normal/abnormal. GRAN MAT (NEUT) % (test code = 770-8) 65.4 % IMM GRAN % (test code = 2491998613) 0.30 % LYMPH % (test code = 736-9) 26.0 % MONO % (test code = 5905-5) 6.2 % EOS % (test code = 713-8) 1.7 % BASO % (test code = 706-2) 0.4 % GRAN MAT x10^3(ANC) (test code = 7028215060) 4.50 10*3/uL 1.88-7.09 IMM GRAN x10^3 (test code = 5270668307) 0.00-0.06 LYMPH x10^3 (test code = 731-0) 1.79 10*3/uL 1.32-3.29 MONO x10^3 (test code = 742-7) 0.43 10*3/uL 0.33-0.92 EOS x10^3 (test code = 711-2) 0.12 10*3/uL 0.03-0.39 BASO x10^3 (test code = 704-7) 0.03 10*3/uL 0.01-0.07 Lab Interpretation (test code = 91816-5) Abnormal [facility]2022-09-16 02:18:31* Test Item Value Reference Range Interpretation Comme nts POCT GLU (test code = 8188124763) 97 mg/dL 70-110 Lab Interpretation (test cod e = 75118-1) Normal [facility], [id number] 22:29:34* Test Item Value Reference Range Interpretation Comme nts PREG SERUM (test code = 4301102139) Negative GRABIEL (test code = GRABIEL) Less than 10 IU/L. ?If low titer or ectopic is suspected, resubmit specimen in 48-72 hours. [facility]ANOL2023-06-18 22:29:09 ALCOHOL<10mg/dL09/15/2022 5:29 PM [facility]<10 Vdirszxy67-502 Toxic>100 Depression of WEB PUBLISHER>400 [facility]. METABOLIC PANEL (73321)2022-09-15 22:22:12* Test Item Value Reference Range Interpretation Comme [facility] NA (test code = 0338858074) 138 mmol/L 135-145 K (test code = 7919940456) 4.2 mmol/L 3.5-5.0 CL (test code = 7715024844) 102 mmol/L 98-108 CO2 TOTAL (test code = 0200572238) 27 mmol/L 23-31 AGAP (test code = 2692763714) 9 2-16 BUN (test code = 5913821236) 15 mg/dL 7-23 GLUCOSE (test code = 6229714186) 87 mg/dL 70-110 CREATININE (test code = 4769880367) 0.73 mg/dL 0.50-1.04 TOTAL BILI (test code = 0313400831) 2.3 mg/dL 0.1-1.1 H CALCIUM (test code = 6033675190) 9.7 mg/dL 8.6-10.6 T PROTEIN (test code = 5351115230) 8.2 g/dL 6.3-8.2 ALBUMIN (test code = 5535369759) 5.0 g/dL 3.5-5.0 ALK PHOS (test code = 8425727766) 71 U/L 34-122 ALTv (test code = 1742-6) 19 U/L 5-35 AST(SGOT) (test code = 3238512795) 23 U/L 13-40 eGFR (test code = 3298145242) 97.1 mL/min/1.73m2 GRABIEL (test code = GRABIEL) Association of Glomerular Filtration Rate (GFR) and Staging of Kidney Disease* + --+ --+ ------+| GFR (mL/min/1.73 m2) ?| With Kidney Damage ?| ?Without Kidney Damage+ --------+ --------+ +| ?>90 ?| ?Stage one ?| ? Normal ?+ ---+ ---+ -------+| ?60-89 ?| ?Stage two ?| ? Decreased GFR ? + --+ --+ ------+| ?30-59 ?| ?Stage three ?| ? Stage three ? + --+ --+ ------+| ?15-29 ?| ?Stage four ? | ? Stage four ?+ ---+ ---+ -------+| ?<15 (or dialysis) ? ?| ?Stage five ? | ? Stage five ?+ ---+ ---+ -------+ *Each stage assumes the associated GFR level has been in effect for at least three months. ?Stages 1 to 5, with or without kidney disease, indicate chronic kidney disease. Notes: Determination of stages one and two (with eGFR >59mL/min/1.73 m2) requires estimation of kidney damage for at least three months as defined by structural or functional abnormalities of the kidney, manifested by either:Pathological abnormalities or Markers of kidney damage (including abnormalities in the composition of the blood or urine or abnormalities in imaging tests). Lab Interpretation (test code = 24867-8) Abnormal [facility]IP[facility]2023-06-18 22:21:52* Test Item Value Reference Range Interpretation Comme nts LIPASE (test code = 1864642729) 39 U/L 0-220 Lab Interpretation (test cod e = 85839-4) Normal [facility] WITH [id number] 22:00:09* Test Item Value Reference Range Interpretation Comme nts WBC (test code = 6690-2) 7.62 See_Comment [Automated messa ge] The system which generated this result transmitted reference range: 4.30 - 11.10 10*3/?L. The reference range was not used to interpret this result as normal/abnormal. RBC (test code = 789-8) 4.80 See_Comment [Automated messa ge] The system which generated this result transmitted reference range: 3.93 - 5.25 10*6/?L. The reference range was not used to interpret this result as normal/abnormal. HGB (test code = 718-7) 15.5 g/dL 11.6-15.0 H HCT (test code = 4544-3) 44.1 % 35.7-45.2 MCV (test code = 787-2) 91.9 fL 80.6-95.5 MCH (test code = 785-6) 32.3 pg 25.9-32.8 MCHC (test code = 786-4) 35.1 g/dL 31.6-35.1 RDW-SD (test code = 63761-7) 40.3 fL 39.0-49.9 RDW-CV (test code = 788-0) 12.1 % 12.0-15.5 PLT (test code = 777-3) 245 See_Comment [Automated messa ge] The system which generated this result transmitted reference range: 166 - 358 10*3/?L. The reference range was not used to interpret this result as normal/abnormal. MPV (test code = 50278-0) 10.4 fL 9.5-12.9 NRBC/100 WBC (test code = 3806320077) 0.0 See_Comment [Automated IPG ssage] The system which generated this result transmitted reference range: 0.0 - 10.0 /100 WBCs. The reference range was not used to interpret this result as normal/abnormal. NRBC x10^3 (test code = 5893640520) See_Comment [Automated messa ge] The system which generated this result transmitted reference range: 10*3/?L. The reference range was not used to interpret this result as normal/abnormal. GRAN MAT (NEUT) % (test code = 770-8) 54.1 % IMM GRAN % (test code = 3508431953) 0.10 % LYMPH % (test code = 736-9) 32.0 % MONO % (test code = 5905-5) 7.2 % EOS % (test code = 713-8) 6.3 % BASO % (test code = 706-2) 0.3 % GRAN MAT x10^3(ANC) (test code = 4900322687) 4.12 10*3/uL 1.88-7.09 IMM GRAN x10^3 (test code = 6939210272) 0.00-0.06 LYMPH x10^3 (test code = 731-0) 2.44 10*3/uL 1.32-3.29 MONO x10^3 (test code = 742-7) 0.55 10*3/uL 0.33-0.92 EOS x10^3 (test code = 711-2) 0.48 10*3/uL 0.03-0.39 H BASO x10^3 (test code = 704-7) 0.01-0.07 Lab Interpretation (test code = 88136-1) Abnormal [facility] Notes Date/Time Note Provider Source 2022-10-16 13:00:00 KDs1DRbr2yCLMzTZBOXk HDws+QQalz WkVEDT+880FWrTyn6UgxEYDvW/3GrY jvog1516-21-31J83:00:00 Addended by: ROSMERY SHEA on: 10/16/2022 04:03 PM Modules accepted: Orders [id number] BptxumeyIX4091-42-44B51:03:04A ddendum DocumentTXT1.2.840.762005.1.13 .104.2.7.2.870374|[id number] Available for patient [id number] M Carty [address] GrxlNulwasadmKqktpifxvJBYP7906 681378ZOBFDWHVOCCIZVVWKLNRAN83 20-10-186:03:041.2.840.02364 0.1.72.3.15|1.2.840.982963.1.1 3.104.2.7.2.727879_[id number] Rosmery Shea MA [facility] 2022-10-16 13:00:00 K93E/zkvODxFyV+MZZjV nhpU7nxFy0 /p/FB2EicUzgdYRIidIhfoEfKuz0in mBBF1174-46-12M45:00:00 Addended by: ROSMERY SHEA on: 10/16/2022 04:07 PM Modules accepted: Orders [id number] NnysixtmNE8615-99-74T04:07:33A ddendum DocumentTXT1.2.840.384355.1.13 .104.2.7.2.750006|[id number] Available for patient care[address] WjfoBvbvrekuzIwoogbtsxWFNZ8455 334676ASJMYTHHXNYMHXMMLLOQRD08 20-10-18T16:07:331.2.840.10749 0.1.72.3.15|1.2.840.505419.1.1 3.104.2.7.2.727879_[id number] [facility]"
[2023-04-10 15:26] LABS: Absolute Lymphocytes (CBC) 2.4 K/uL (0.7-4.9); Hematocrit 39.5 % (36.0-45.0); MCV 91.4 fL (80-100); MPV 7.6 fL (7.6-11.3); Platelets 225 thou/uL (152-406); RBC Red Blood Cell Count 4.32 M/uL (3.86-4.86)
[2023-04-10 15:34] LABS: Magnesium 1.9 mg/dL (1.6-2.4); Potassium 3.6 mEq/L (3.5-5.1)
[2023-04-10 16:38] LABS: SARS-COV-2 RT PCR NEGATIVE (NEGATIVE)
--- NOTE | 2023-04-10 16:40 | RAD REPORT ---
EXAM DESCRIPTION: Zaida Single View04/10/2023 3:26 pm CLINICAL HISTORY: syncope COMPARISON: No comparisons TECHNIQUE: Portable AP view of the chest. FINDINGS: The lungs are clear. No pneumothorax or effusion. The cardiomediastinal contours are unre markable. IMPRESSION: No acute cardiopulmonary process.
--- NOTE | 2023-04-10 16:43 | RAD REPORT ---
EXAM DESCRIPTION: CT - Head Brain Wo Cont - 04/10/2023 3:33 pm CLINICAL HISTORY: SYNCOPE COMPARISON: No comparisons TECHNIQUE: Noncontrast head CT images were obtained without IV contrast. Multiplanar reformats were generated and reviewed. All CT scans are performed using dose optimization technique as appropriate and may include automated exposure control or mA/KV adjustment according to patient size. FINDINGS: No intracranial hemorrhage, mass, or edema. Midline structures are unremarkable. Normal ventricular caliber for age. Torres-white matter differentiation is preserved, without evidence of acute infarct. No abnormal extra- axial fluid collections. Mastoid air cells and visualized portions of the paranasal sinuses are clear. No acute bony findings. IMPRESSION: No evidence of an acute intracranial process.
--- NOTE | 2023-04-10 17:06 | RAD REPORT ---
EXAM DESCRIPTION: CT - Soft Tissue Neck W/Contr CLINICAL HISTORY: Pain;Swelling COMPARISON: No comparisons TECHNIQUE: Thin axial CT images of the neck, performed following intravenous administration of 100 mL Isovue-300. Multiplanar reformats were generated and reviewed. All CT scans are performed using dose optimization technique as appropriate and may include automated exposure control or mA/KV adjustment according to patient size. FINDINGS: Prominent right zone 1B and zone 2A lymph nodes, largest measuring 2.1 x 1.8 cm. Mild enla rgement and hyperenhancement of the right submandibular gland. Mild adjacent fat stranding to the sub mandibular gland and adjacent lymph nodes. No evidence of calculi within the gland or along the patella. Small periapical collections, largest present at the root of the right mandibular second premolar. Nasopharyngeal tissues are normal in appearance. Fossa Rosenmller are normal. Parapharyngeal fat triangles are symmetric. Tongue base structures are normal. Epiglottis and aryepiglottic folds are normal. Piriform sinuses are well aerated. The vocal cords are normal in appearance. Other salivary glands are normal in appearance. Upper lung del real are clear. Included intracranial contents are unremarkable. IMPRESSION: Mild enlargement and hyperenhancement of the right submandibular gland, suggestive of si aloadenitis, without evidence of calculi. Adjacent right zone 1B and zone 2A lymph anais enlargement,, likely reactive.
[2023-04-10 18:10] LABS: Specific Gravity > 1.030 (1.005-1.030)
[2023-04-10 18:15] LABS: Specific Gravity > 1.030 (1.005-1.030); Urine Bacteria None Seen /HPF (<20); Urine Bilirubin NEGATIVE (Negative); Urine Blood Negative (Negative); Urine Clarity Clear (Clear); Urine Color Light-Yellow (Yellow); Urine Glucose NEGATIVE (Negative); Urine Protein NEGATIVE (Negative); Urine RBC <5 /HPF (None Seen); Urine Urobilinogen Normal (Normal)
--- NOTE | 2023-04-10 19:28 | EDPHYS ---
Physician Documentation [facility] Name: Tigist Valdez Age: 27 yrs Sex: Female : 1995 Arrival Date: 04/10/2023 Time: 14:33 Bed 18 Private MD: ED Physician Mckay Moore HPI: 04/10 15:00 This 27 yrs old Female presents to ER via Ambulatory with complaints of Syncope. cp 15:00 The patient has experienced syncope, lost consciousness. Onset: The symptoms/episode cp began/occurred today. Associated injury: The patient did not suffer any apparent associated injury. Patient is a 27-year-old female who returns to the emergency department after being seen 3 days ago for left lower jaw swelling and pain. Patient was prescribed antibiotics which she says she has been taking but has had some episodes of vomiting and comes in today complaining of a syncopal episode today. 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 - Social history:: Smoking status: Patient denies any tobacco usage or history of. ROS: 15:05 Constitutional: Negative for body aches, chills, fever, poor PO intake, cp 15:05 Eyes: Negative for injury, pain, redness, and discharge, cp 15:05 ENT: Positive for swelling, pain right lower jaw, 15:05 Cardiovascular: Negative for chest pain, palpitations, 15:05 Respiratory: Negative for cough, shortness of breath, wheezing, 15:05 Abdomen/GI: Positive for nausea and vomiting, 15:05 Neuro: Positive for dizziness, syncope, weakness, Negative for altered mental status, 15:05 All other systems are negative, Exam: 15:30 Constitutional: The patient appears in no acute distress, alert, awake, non-toxic, well cp developed, well nourished, uncomfortable, 15:30 Head/face: Noted is swelling, that is mild, of the right jaw, tenderness, cp 15:30 Eyes: Periorbital structures: appear normal, Pupils: equal, round, and reactive to light and accomodation, Extraocular movements: intact throughout, Conjunctiva: normal, no exudate, no injection, Sclera: no appreciated abnormality, Lids and lashes: appear normal, bilaterally, 15:30 ENT: External ear(s): are unremarkable, Ear canal(s): are normal, clear, TM's: dullness, bilaterally, Nose: is normal, Mouth: Lips: moist, Oral mucosa: pink and intact, moist, Posterior pharynx: Airway: no evidence of obstruction, patent, Tonsils: no enlargement, no exudate, swelling, is not appreciated, erythema, that is mild, exudate, is not appreciated, 15:30 Neck: Lymph nodes: lymphadenopathy is appreciated, anterior cervical nodes, 15:30 Chest/axilla: Inspection: normal, 15:30 Cardiovascular: Rate: normal, Rhythm: regular, Edema: is not appreciated, JVD: is not appreciated, 15:30 Respiratory: the patient does not display signs of respiratory distress, Respirations: normal, no use of accessory muscles, no retractions, labored breathing, is not present, Breath sounds: are clear throughout, no decreased breath sounds, no stridor, no wheezing, 15:30 Abdomen/GI: Inspection: abdomen appears normal, Palpation: abdomen is soft and non-tender, in all quadrants, 15:30 Back: pain, is absent, ROM is normal, 15:30 Neuro: Orientation: to person, place \T\ time. Mentation: able to follow commands, slow to respond, Cerebellar function: is grossly normal, Motor: moves all fours, no focal deficits, Sensation: no obvious gross deficits, Vital Signs: 14:59 BP 111 / 70 Supine; Pulse 55; nj1 14:59 BP 117 / 75 Sitting; Pulse 59; nj1 14:59 BP 128 / 81 Standing; Pulse 65; nj1 15:00 BP 123 / 77; Pulse 78; Resp 18; Temp 97.4; Pulse Ox 97% on R/A; Weight 68.95 kg; Height ph 5 ft. 2 in. ; 16:00 BP 102 / 69; Pulse 66; Resp 17; Pulse Ox 98% on R/A; me1 16:30 BP 112 / 81; Pulse 71; Resp 16; Pulse Ox 99% on R/A; me1 17:30 BP 115 / 80; Pulse 78; Resp 18; Pulse Ox 99% on R/A; me1 18:30 BP 102 / 67; Pulse 79; Resp 18; Pulse Ox 99% on R/A; me1 19:00 BP 99 / 62; Pulse 58; Resp 19 S; Pulse Ox 97% on R/A; nw1 19:30 BP 94 / 63; Pulse 66; Resp 16 S; Pulse Ox 99% on R/A; nw1 15:00 Body Mass Index 27.80 (68.95 kg, 157.48 cm) ph MDM: 14:53 Patient medically screened. cp 19:27 Data reviewed: vital signs, nurses notes, lab test result(s), radiologic studies, CT cp scan. 19:27 Differential Diagnosis: abscess, sepsis, dental infection. Consideration of cp Admission/Observation Escalation of care including admission/observation considered. I considered the following discharge prescriptions or medication management in the emergency department Medications were administered in the Emergency Department. See MAR. Counseling: I had a detailed discussion with the patient and/or guardian regarding the historical points, exam findings, and any diagnostic results supporting the discharge/admit diagnosis, lab results, radiology results, the need for outpatient follow up, an ENT specialist, to return to the emergency department if symptoms worsen or persist or if there are any questions or concerns that arise at home. Response to treatment: the patient's symptoms have markedly improved after treatment, and as a result, I will discharge patient. 04/10 14:47 Order name: Basic Metabolic Panel; Complete Time: 17:09 04/10 17:09 Interpretation: Normal except: CL 108; GLUC 108. cp 04/10 14:47 Order name: CBC with Diff; Complete Time: 17:09 04/10 17:09 Interpretation: Reviewed. 04/10 14:47 Order name: Magnesium; Complete Time: 17:09 04/10 14:47 Order name: Troponin HS; Complete Time: 17: 04/10 14:47 Order name: PREGU; Complete Time: 19:25 cp 04/10 14:47 Order name: Urinalysis W/Microscopic; Complete Time: 19:25 04/10 19:25 Interpretation: Normal except: Urine SG > 1.030. cp 04/10 14:58 Order name: [place] Screen Profile; Complete Time: 17:09 cp 04/10 14:58 Order name: Strep cp 04/10 15:09 Order name: COVID-19/FLU A+B; Complete Time: 17: 04/10 16:13 Order name: Throat Culture EDAZ 04/10 14:47 Order name: XRAY Chest (1 view); Complete Time: 17:09 04/10 17:10 Interpretation: Report review. 04/10 14:49 Order name: CT Head Brain wo Cont; Complete Time: 17:09 04/10 17:10 Interpretation: Report reviewed. 04/10 14:49 Order name: CT Soft Tissue Neck W/contr; Complete Time: 17:09 04/10 14:47 Order name: EKG; Complete Time: 14:47 04/10 14:47 Order name: Cardiac monitoring; Complete Time: 15:56 04/10 14:47 Order name: EKG - Nurse/Tech; Complete Time: 15:56 04/10 14:47 Order name: IV Saline Lock; Complete Time: 15:12 04/10 14:47 Order name: Labs collected and sent; Complete Time: 15:12 04/10 14:47 Order name: O2 Per Protocol; Complete Time: 15:12 04/10 14:47 Order name: O2 Sat Monitoring; Complete Time: 15:12 04/10 14:47 Order name: Orthostatics; Complete Time: 15:12 04/10 17:14 Order name: PO challenge; Complete Time: 19:15 cp Administered Medications: 15:05 Drug: NS 0.9% IV 1000 ml IV at 1 bolus Per protocol; 1000 mL bolus Route: IV; Rate: 1 nj1 bolus; Site: right antecubital; 19:00 Follow up: IV Status: Completed infusion me1 15:05 Drug: Ondansetron IVP 4 mg IVP once; over 2 minutes Route: IVP; Site: right antecubital;nj1 16:26 Follow up: Response: No adverse reaction me1 15:07 Drug: Famotidine IVP 20 mg IVP once; dilute with 10 mL 0.9% NaCl; give over 2 minutes nj1 Route: IVP; Site: right antecubital; 16:26 Follow up: Response: No adverse reaction me1 17:42 Drug: Rocephin IV 1 grams IV at calculated rate once; Given slow IV push per pharmacy me1 instructions Route: IV; Rate: calculated rate; Site: left forearm; 19:00 Follow up: Response: No adverse reaction; IV Status: Completed infusion me1 17:42 Drug: Clindamycin IVPB 900 mg IVPB once over 30 mins; (mix in 50 mL) Route: IVPB; me1 Infused Over: 30 mins; Site: left antecubital; 19:00 Follow up: Response: No adverse reaction; IV Status: Completed infusion me1 17:42 Drug: Decadron - Dexamethasone IVP 10 mg IVP once Route: IVP; Site: left antecubital; me1 19:01 Follow up: Response: No adverse reaction me1 19:45 Drug: metoCLOPramide IVP 10 mg IVP once; over 1 to 2 minutes Route: IVP; Site: right nw1 antecubital; Disposition Summary: 04/10/23 19:28 Discharge Ordered Notes: Stop Cefdinir Location: Home cp Problem: new cp Symptoms: have improved cp Condition: Stable cp Diagnosis - Sialoadenitis, unspecified - right submandibular gland cp - Localized enlarged lymph nodes cp - Unspecified diseases of pulp and periapical tissues cp - Syncope cp - Nausea with vomiting, unspecified cp Followup: cp - With: Tanisha Portillo MD - When: 2 - 3 days - Reason: Recheck today's complaints Discharge Instructions: - Discharge Summary Sheet cp - Nausea and Vomiting, Adult cp - Salivary Gland Infection cp - Syncope cp - Diet and Dental Disease cp - Lymphadenopathy cp - Form - Return To Work nw1 - Form - Late to Work or School nw1 Forms: - Medication Reconciliation Form cp - Thank You Letter cp - Antibiotic Education cp - Prescription Opioid Use cp - Patient Portal Instructions cp - Leadership Thank You Letter cp - Work release form nw1 Prescriptions: - Clindamycin HCl 300 mg Oral Capsule - take 1 capsule ORAL route every 6 hours for 10 days; 40 capsule; Refills: 0, cp Product Selection Permitted - Ibuprofen 800 mg Oral Tablet - take 1 tablet ORAL route every 8 hours As needed take with food; 30 tablet; cp Refills: 0, Product Selection Permitted - Zofran 4 mg Oral Tablet - take 1 tablet ORAL route every 12 hours As needed; 20 tablet; Refills: 0, cp Product Selection Permitted Signatures: Dispatcher [employer] Yamileth Richter RN RN Duke Wills PA PA cp Livier Miller RN RN nj1 Faye Moreno RN RN me1 Nehal Bravo RN RN nw1
--- NOTE | 2023-04-10 19:28 | ER ---
Nurse's Notes [facility] Name: Tigist Valdez Age: 27 yrs Sex: Female : 1995 Arrival Date: 04/10/2023 Time: 14:33 Bed 18 Private MD: Diagnosis: Sialoadenitis, unspecified-right submandibular gland;Localized enlarged lymph nodes;Unspecified diseases of pulp and periapical tissues;Syncope;Nausea with vomiting, unspecified Presentation: 04/10 15:00 Chief complaint: Patient states: Seen in ED a few days ago for sore throat, prescribed ph pain medication and antibiotic, the day after being seen began to have N/V, syncopal episode today, states that she did not fall or injure herself, was caught by SO. Coronavirus screen: Vaccine status: Patient reports receiving the 2nd dose of the covid vaccine. Ebola Screen: No symptoms or risks identified at this time. Initial Sepsis Screen: Does the patient meet any 2 criteria? No. Patient's initial sepsis screen is negative. Does the patient have a suspected source of infection? No. Patient's initial sepsis screen is negative. Risk Assessment: Do you want to hurt yourself or someone else? Patient reports no desire to harm self or others. Onset of symptoms was April 10, 2023. 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 - Social history:: Smoking status: Patient denies any tobacco usage or history of. Screenin:22 [facility] ED Fall Risk Assessment (Adult) Score/Fall Risk Level 0 - 2 = Low Risk nj1 Oriented to surroundings, Maintained a safe environment, Hourly rounding (assess needs \T\ fall precautionary measures) done. Abuse screen: Denies threats or abuse. Denies injuries from another. Nutritional screening: No deficits noted. Tuberculosis screening: No symptoms or risk factors identified. Assessment: 15:00 General: Appears in no apparent distress. uncomfortable, Behavior is calm, cooperative, nj1 appropriate for age. Pain: Complains of pain in head Pain currently is 5 out of 10 on a pain scale. Quality of pain is described as aching. 15:00 Neuro: Level of Consciousness is awake, alert, obeys commands, Oriented to person, nj1 place, time, situation, Reports headache a syncopal episode weakness. Cardiovascular: Patient's skin is warm and dry. Respiratory: Airway is patent Respiratory effort is even, unlabored. Derm: Skin is pale. 15:00 GI: Reports nausea. nj1 16:30 Cardiovascular: Rhythm is sinus rhythm. ok1 19:15 Reassessment: Report received from CANDI Mckinney \T\ 1900 and assumed care of patint at nw1 this time. Pt to be PO challenged. Gatorade given and pt drinking at this time. Will reassess to see if patient is able to tolerate fluids. Call light at bedside. Will continue to monitor. 19:33 Reassessment: PO challenge performed. Pt tolerating fluids but endorses nausea. PA Page nw1 notified. Discharge on hold at this time. 19:52 Reassessment: Pt given medication and verbalizes understanding of POC to PO challenge nw1 10 min after receiving IV medication. Will reassess nausea status. Discharge still on hold at this time. LUPIS Hunter aware. 19:59 Reassessment: Pt up to restroom and states nausea relief. Page notified. Will discharge nw1 at this time. Vital Signs: 14:59 BP 111 / 70 Supine; Pulse 55; nj1 14:59 BP 117 / 75 Sitting; Pulse 59; nj1 14:59 BP 128 / 81 Standing; Pulse 65; nj1 15:00 BP 123 / 77; Pulse 78; Resp 18; Temp 97.4; Pulse Ox 97% on R/A; Weight 68.95 kg; Height ph 5 ft. 2 in. ; 16:00 BP 102 / 69; Pulse 66; Resp 17; Pulse Ox 98% on R/A; me1 16:30 BP 112 / 81; Pulse 71; Resp 16; Pulse Ox 99% on R/A; me1 17:30 BP 115 / 80; Pulse 78; Resp 18; Pulse Ox 99% on R/A; me1 18:30 BP 102 / 67; Pulse 79; Resp 18; Pulse Ox 99% on R/A; me1 19:00 BP 99 / 62; Pulse 58; Resp 19 S; Pulse Ox 97% on R/A; nw1 19:30 BP 94 / 63; Pulse 66; Resp 16 S; Pulse Ox 99% on R/A; nw1 15:00 Body Mass Index 27.80 (68.95 kg, 157.48 cm) ph ED Course: 14:34 Patient arrived in ED. im 14:37 Duke Villavicencio PA is PHCP. cp 14:38 Mckay Moore MD is Attending Physician. cp 15:02 Triage completed. ph 15:03 Arm band placed on Patient placed in an exam room. ph 15:22 Patient has correct armband on for positive identification. Bed in low position. Call nj1 light in reach. Provided Education on: call light, fall precautions. 15:28 XRAY Chest (1 view) In Process Unspecified. EDMS 15:35 CT Head Brain wo Cont In Process Unspecified. EDMS 15:35 CT Soft Tissue Neck W/contr In Process Unspecified. EDMS 16:26 Faye Moreno, RN is Primary Nurse. me1 16:27 No provider procedures requiring assistance completed. me1 19:27 Tanisha Portillo MD is Referral Physician. cp 20:21 IV discontinued, intact, bleeding controlled, No redness/swelling at site. Pressure nw1 dressing applied, 22 G RAC discontinued. Administered Medications: 15:05 Drug: NS 0.9% IV 1000 ml IV at 1 bolus Per protocol; 1000 mL bolus Route: IV; Rate: 1 nj1 bolus; Site: right antecubital; 19:00 Follow up: IV Status: Completed infusion me1 15:05 Drug: Ondansetron IVP 4 mg IVP once; over 2 minutes Route: IVP; Site: right antecubital;nj1 16:26 Follow up: Response: No adverse reaction me1 15:07 Drug: Famotidine IVP 20 mg IVP once; dilute with 10 mL 0.9% NaCl; give over 2 minutes nj1 Route: IVP; Site: right antecubital; 16:26 Follow up: Response: No adverse reaction me1 17:42 Drug: Rocephin IV 1 grams IV at calculated rate once; Given slow IV push per pharmacy me1 instructions Route: IV; Rate: calculated rate; Site: left forearm; 19:00 Follow up: Response: No adverse reaction; IV Status: Completed infusion me1 17:42 Drug: Clindamycin IVPB 900 mg IVPB once over 30 mins; (mix in 50 mL) Route: IVPB; me1 Infused Over: 30 mins; Site: left antecubital; 19:00 Follow up: Response: No adverse reaction; IV Status: Completed infusion me1 17:42 Drug: Decadron - Dexamethasone IVP 10 mg IVP once Route: IVP; Site: left antecubital; me1 19:01 Follow up: Response: No adverse reaction me1 19:45 Drug: metoCLOPramide IVP 10 mg IVP once; over 1 to 2 minutes Route: IVP; Site: right nw1 antecubital; Medication: 16:31 VIS not applicable for this client. me1 Outcome: 19:28 Discharge ordered by MD. cp 20:22 Discharged to home ambulatory, with family, nw1 20:22 Condition: stable 20:22 Discharge instructions given to patient, Instructed on discharge instructions, follow up and referral plans. medication usage, Demonstrated understanding of instructions, follow-up care, medications, Prescriptions given X 3, 20:22 Patient left the ED. nw1 Signatures: Dispatcher [employer] EDYamileth Hopson RN RN ph Duke Villavicencio, RUPERT PA cp Livier Miller, RN RN nj1 Dinah Pickard Michelle, RN RN me1 Nehal Bravo RN RN nw1 Corrections: (The following items were deleted from the chart) 15:15 15:00 Neuro: Level of Consciousness is awake, alert, obeys commands, Oriented to nj1 person, place, time, situation, Reports headache a syncopal episode nj 16:27 15:00 Chief complaint: Patient states: Seen in ED a few days ago for sore throat, me1 prescribed pain medication and antibiotic, the day after being seen began to have N/V, syncopal episode today, states that she did not fall or injure herself, was caught by SO ph
[2023-04-11 02:09] VITALS: BP 94/63; TEMP 97.4; O2SAT 99
--- NOTE | 2023-04-11 13:24 | EKG ---
Test Date: 2023-04-10 Test Time: 15:54:08 [place] Operator: LIANNA MEASUREMENT RESULTS: Intervals: Rate: 61 AL: 148 QRSD: 78 QT: 442 QTc: 444 [place]: P: 53 AL: 148 QRS: 61 T: 30 INTERPRETIVE STATEMENTS: Normal sinus rhythm Normal ECG No previous ECG available for comparison Electronically Signed On 04-11-23 13:22:35 TIMBER ROBBER by Slim Briceno
== END ==
LOC: ER 14:33
DX: K11.20 Sialoadenitis, unspecified (principal); R55 Syncope and collapse; R11.2 Nausea with vomiting, unspecified; R59.0 Localized enlarged lymph nodes; K04.90 Unspecified diseases of pulp and periapical tissues
CPT/HCPCS: 93005; 87070; 85025; 81001; 80048; 36415; 83735; 86308; 81025; 87081; 84484; 0240U; 70450; 70491; 71045; 99284; Q9967; J2765; J2405; J7030